=== PATIENT | female | born 1950 | race Caucasian/White ===

== ENCOUNTER → 2016-07-07 | Outpatient (REF) | payer MEDICARE, MEDICAID ==
[~2016-07-07] MED LIST: ASTEPRO NASAL SPRAY PO; CALCCHW12 PO; IBUP600T PO; INTERFERON SQ; KLON0.5T PO; METH40TA PO; MULTIVIT PO; PRIL20CA PO; RIBAVIRIN PO; RISE30TA PO; VITA-113 INJ; ZITH500T PO; [UNRECOGNIZED DRUG - OTHER] PO; [UNRECOGNIZED DRUG - OTHER] PO
[2016-07-07 11:52] LABS: MEAN CORPUSCULAR HEMOGLOBIN 32.8 pg (27.0-33.0); MEAN CORPUSCULAR HGB CONC 35.2 g/dl (32.0-36.5); MEAN CORPUSCULAR VOLUME 93.1 fl (80.0-96.0); RED CELL DISTRIBUTION WIDTH 13.5 % (11.5-14.5); WHITE BLOOD COUNT 3.4 K/mm3 (4.0-10.0)
[2016-07-07 12:08] LABS: FOLATE > 24.0 NG/ML; VITAMIN B12 LEVEL 533 PG/ML
[2016-07-07 12:31] LABS: ALBUMIN 3.3 GM/DL (3.2-5.2); ALBUMIN/GLOBULIN RATIO 0.83 (1.00-1.93); ALKALINE PHOSPHATASE 108 U/L (45-117); ALT/SGPT 19 U/L (12-78); ANION GAP 7 MEQ/L (8-16); AST/SGOT 27 U/L (15-37); BILIRUBIN,TOTAL 0.8 MG/DL (0.2-1.0); BLOOD UREA NITROGEN 15 MG/DL (7-18); CALCIUM LEVEL 8.8 MG/DL (8.8-10.2); CARBON DIOXIDE LEVEL 32 MEQ/L (21-32); CHLORIDE LEVEL 104 MEQ/L (98-107); CHOLESTEROL LEVEL 139 MG/DL (<200); CREATININE FOR GFR 0.72 MG/DL (0.55-1.02); GLOMERULAR FILTRATION RATE > 60.0 (>45); GLUCOSE, FASTING 79 MG/DL (80-110); POTASSIUM SERUM 3.7 MEQ/L (3.5-5.1); SODIUM LEVEL 143 MEQ/L (136-145); TOTAL PROTEIN 7.3 GM/DL (6.4-8.2); TRIGLYCERIDES LEVEL 89 MG/DL (<150)
== END ==
LOC: M SFHCPLAZ 09:52
PROVIDERS: ATTEND Nurse Practitioner Family
DX: Z13.220 Encounter for screening for lipoid disorders (principal); E53.8 Deficiency of other specified B group vitamins; E55.9 Vitamin D deficiency, unspecified; Z79.899 Other long term (current) drug therapy

== ENCOUNTER → 2016-08-06 | Outpatient (REF) | payer MEDICARE, MEDICAID ==
[2016-08-06 13:45] LABS: FOLATE 23.2 NG/ML
[2016-08-08 00:07] LABS: HEPATITIS C QUANTITATION HCV Not Detected IU/mL (.)
== END ==
LOC: M SFHCPLAZ 09:28
PROVIDERS: ATTEND Internal Medicine Infectious Disease
DX: B18.2 Chronic viral hepatitis C (principal)
CPT/HCPCS: 82105; 82607; 82746; 87522; 93005; G0463

== ENCOUNTER → 2016-08-11 | Outpatient (CLI) | payer MEDICARE, MEDICAID ==
--- NOTE | 2016-08-11 12:13 | REP ---
Clinical: Hemoptysis . Comparison: 05/09/2014 . Technique: PA and lateral. Findings: The mediastinum and cardiac silhouette are normal. The lung villafuerte are clear and without acute consolidation, effusion, or pneumothorax. The skeletal structures are intact and normal. Impression: 1. No acute cardiopulmonary process. Signed by Rakesh Nguyen MD 08/11/2016 08:35 A
--- NOTE | 2016-08-11 12:13 | REP ---
Clinical: Chronic hepatitis C. Comparison: 06/05/2015. Technique: The time gomez scale ultrasound examination using curved array transducer. Findings: The liver demonstrates a coarsened hepatic echotexture without focal hepatic lesion identified. The pancreas is incompletely evaluated but visualized portions appear normal. The gallbladder demonstrates multiple gallstones without wall thickening or pericholecystic fluid. No intrahepatic biliary ductal dilatation is appreciated and the common bile duct is upper limits of normal at 7.5 mm diameter. The right kidney is normal in reniform shape without hydronephrosis and measures 9.6 x 4.8 x 4.8 cm. No ascites. Impression: 1. Hepatocellular disease compatible with history of hepatitis. No focal hepatic lesions are identified. 2. Cholelithiasis without sonographic evidence for acute cholecystitis. Signed by Rakesh Nguyen MD 08/11/2016 08:36 A
== END ==
LOC: M RAD 08:00
PROVIDERS: ATTEND Internal Medicine Infectious Disease
DX: K76.89 Other specified diseases of liver (principal); K80.20 Calculus of gallbladder without cholecystitis without obstruction; B18.2 Chronic viral hepatitis C; R04.2 Hemoptysis
CPT/HCPCS: 71020; 76705; G0463

== ENCOUNTER → 2016-08-22 | Outpatient (REF) | payer MEDICARE, MEDICAID ==
[2016-08-22 16:25] LABS: BLOOD UREA NITROGEN 16 MG/DL (7-18); CREATININE FOR GFR 0.85 MG/DL (0.55-1.02); GLUCOSE, FASTING 100 MG/DL (80-110)
[2016-08-22 16:26] LABS: ANION GAP 6 MEQ/L (8-16); CALCIUM LEVEL 8.6 MG/DL (8.8-10.2); CARBON DIOXIDE LEVEL 29 MEQ/L (21-32); CHLORIDE LEVEL 106 MEQ/L (98-107); GLOMERULAR FILTRATION RATE > 60.0 (>45); POTASSIUM SERUM 3.8 MEQ/L (3.5-5.1); SODIUM LEVEL 141 MEQ/L (136-145)
== END ==
LOC: M SFHCPLAZ 12:28
PROVIDERS: ATTEND Nurse Practitioner Family
DX: I10 Essential (primary) hypertension (principal)
CPT/HCPCS: 36415; 80048; 93005; G0463

== ENCOUNTER → 2016-09-16 | Outpatient (REF) | payer MEDICARE, MEDICAID ==
[2016-09-16 13:32] LABS: ANION GAP 8 MEQ/L (8-16); BLOOD UREA NITROGEN 15 MG/DL (7-18); CALCIUM LEVEL 9.2 MG/DL (8.8-10.2); CARBON DIOXIDE LEVEL 32 MEQ/L (21-32); CHLORIDE LEVEL 98 MEQ/L (98-107); CREATININE FOR GFR 0.85 MG/DL (0.55-1.02); GLOMERULAR FILTRATION RATE > 60.0 (>45); GLUCOSE, FASTING 114 MG/DL (80-110); POTASSIUM SERUM 3.3 MEQ/L (3.5-5.1); SODIUM LEVEL 138 MEQ/L (136-145)
== END ==
LOC: M SFHCPLAZ 11:23
PROVIDERS: ATTEND Nurse Practitioner Family
DX: I10 Essential (primary) hypertension (principal)
CPT/HCPCS: 36415; 80048; G0463

== ENCOUNTER → 2016-09-23 | Outpatient (REF) | payer MEDICARE, MEDICAID ==
[2016-09-23 16:51] LABS: MEAN CORPUSCULAR HEMOGLOBIN 32.6 pg (27.0-33.0); MEAN CORPUSCULAR HGB CONC 35.6 g/dl (32.0-36.5); MEAN CORPUSCULAR VOLUME 91.5 fl (80.0-96.0); RED CELL DISTRIBUTION WIDTH 12.8 % (11.5-14.5); WHITE BLOOD COUNT 5.7 K/mm3 (4.0-10.0)
[2016-09-23 17:16] LABS: FOLATE > 24.0 NG/ML; VITAMIN B12 LEVEL 771 PG/ML
[2016-09-23 18:06] LABS: ALBUMIN 3.6 GM/DL (3.2-5.2); ALBUMIN/GLOBULIN RATIO 0.82 (1.00-1.93); ALKALINE PHOSPHATASE 134 U/L (45-117); ALT/SGPT 23 U/L (12-78); ANION GAP 6 MEQ/L (8-16); AST/SGOT 30 U/L (15-37); BILIRUBIN,TOTAL 0.6 MG/DL (0.2-1.0); BLOOD UREA NITROGEN 12 MG/DL (7-18); CARBON DIOXIDE LEVEL 33 MEQ/L (21-32); CHLORIDE LEVEL 99 MEQ/L (98-107); CREATININE FOR GFR 0.88 MG/DL (0.55-1.02); GLOMERULAR FILTRATION RATE > 60.0 (>45); GLUCOSE, FASTING 100 MG/DL (80-110); POTASSIUM SERUM 3.7 MEQ/L (3.5-5.1); SODIUM LEVEL 138 MEQ/L (136-145)
== END ==
LOC: M SFHCPLAZ 14:29
PROVIDERS: ATTEND Nurse Practitioner Family
DX: E53.8 Deficiency of other specified B group vitamins (principal); M54.9 Dorsalgia, unspecified; I10 Essential (primary) hypertension; E55.9 Vitamin D deficiency, unspecified

== ENCOUNTER → 2016-10-22 | Outpatient (CLI) | payer MEDICARE, MEDICAID ==
[2016-10-22 16:39] LABS: ANION GAP 8 MEQ/L (8-16); BLOOD UREA NITROGEN 15 MG/DL (7-18); CALCIUM LEVEL 8.9 MG/DL (8.8-10.2); CARBON DIOXIDE LEVEL 31 MEQ/L (21-32); CHLORIDE LEVEL 100 MEQ/L (98-107); CREATININE FOR GFR 0.77 MG/DL (0.55-1.02); GLOMERULAR FILTRATION RATE > 60.0 (>45); GLUCOSE, FASTING 81 MG/DL (80-110); POTASSIUM SERUM 3.6 MEQ/L (3.5-5.1); SODIUM LEVEL 139 MEQ/L (136-145)
== END ==
LOC: M LAB 15:51
PROVIDERS: ATTEND Nurse Practitioner Family
DX: I10 Essential (primary) hypertension (principal)

== ENCOUNTER → 2017-05-08 | Outpatient (REF) | payer MEDICARE, MEDICAID ==
[2017-05-08 16:05] LABS: HEMATOCRIT 39.5 % (36.0-47.0); HEMOGLOBIN 13.6 g/dl (12.0-16.0); MEAN CORPUSCULAR HEMOGLOBIN 31.5 pg (27.0-33.0); MEAN CORPUSCULAR HGB CONC 34.4 g/dl (32.0-36.5); MEAN CORPUSCULAR VOLUME 91.4 fl (80.0-96.0); RED BLOOD COUNT 4.32 10^6/uL (4.00-5.40); WHITE BLOOD COUNT 4.6 10^3/uL (4.0-10.0)
[2017-05-08 16:24] LABS: TOTAL 25(OH) VITAMIN D 33.4 NG/ML (30.0-100.0)
[2017-05-08 16:25] LABS: FOLATE 19.9 NG/ML; VITAMIN B12 LEVEL 738 PG/ML
[2017-05-08 16:34] LABS: ALBUMIN 3.4 GM/DL (3.2-5.2); ALBUMIN/GLOBULIN RATIO 0.85 (1.00-1.93); ALKALINE PHOSPHATASE 116 U/L (45-117); ALT/SGPT 20 U/L (12-78); ANION GAP 6 MEQ/L (8-16); AST/SGOT 31 U/L (7-37); BILIRUBIN,TOTAL 0.6 MG/DL (0.2-1.0); BLOOD UREA NITROGEN 13 MG/DL (7-18); CALCIUM LEVEL 8.7 MG/DL (8.8-10.2); CARBON DIOXIDE LEVEL 28 MEQ/L (21-32); CHLORIDE LEVEL 106 MEQ/L (98-107); CREATININE FOR GFR 0.73 MG/DL (0.55-1.30); GLOMERULAR FILTRATION RATE > 60.0 (>45); GLUCOSE, FASTING 75 MG/DL (70-100); POTASSIUM SERUM 4.1 MEQ/L (3.5-5.1); SODIUM LEVEL 140 MEQ/L (136-145); TOTAL PROTEIN 7.4 GM/DL (6.4-8.2)
[2017-05-08 17:09] LABS: PLATELET COUNT, AUTOMATED 76 10^3/uL (150-450); POS COUNT POS FLAG
[2017-05-08 17:10] LABS: IMMATURE PLATELET FRACTION % 6.8 % (0.0-9.6)
== END ==
LOC: M SFHCPLAZ 14:03
DX: E53.8 Deficiency of other specified B group vitamins (principal); I10 Essential (primary) hypertension; E55.9 Vitamin D deficiency, unspecified
CPT/HCPCS: 82746

== ENCOUNTER 2017-06-02 03:31 | Inpatient (IN) | payer MEDICARE, MEDICAID ==
[2017-06-02 05:07] LABS: BASO % 0.1 % (0.0-1.0); HEMATOCRIT 39.1 % (36.0-47.0); HEMOGLOBIN 13.4 g/dl (12.0-15.5); IMMATURE GRANULOCYTE % 0.4 % (0-3.0); LYMPH # 0.8 10^3/uL (1.5-4.5); LYMPH % 8.9 % (24.0-44.0); MEAN CORPUSCULAR HEMOGLOBIN 31.1 pg (27.0-33.0); MEAN CORPUSCULAR HGB CONC 34.3 g/dl (32.0-36.5); MEAN CORPUSCULAR VOLUME 90.7 fl (80.0-96.0); MONO # 0.9 10^3/uL (0.0-0.8); MONO % 9.5 % (0.0-5.0); NEUTROPHILS # 7.7 10^3/uL (1.8-7.7); NEUTROPHILS % 81.1 % (36.0-66.0); RED BLOOD COUNT 4.31 10^6/uL (4.00-5.40); RED CELL DISTRIBUTION WIDTH 12.8 % (11.5-14.5); WHITE BLOOD COUNT 9.5 10^3/uL (4.0-10.0)
[2017-06-02 05:35] LABS: PLATELET COUNT, AUTOMATED 70 10^3/uL (150-450); POS COUNT POS FLAG
[2017-06-02 05:36] LABS: IMMATURE PLATELET FRACTION % 5.4 % (0.0-9.6)
[2017-06-02] MEDS: NS 500 ML IV (05:44)
[2017-06-02 06:13] LABS: ALBUMIN/GLOBULIN RATIO 0.79 (1.00-1.93); ALKALINE PHOSPHATASE 102 U/L (45-117); ALT/SGPT 13 U/L (12-78); ANION GAP 5 MEQ/L (8-16); AST/SGOT 28 U/L (7-37); BILIRUBIN,DIRECT 0.3 MG/DL (0.0-0.2); BLOOD UREA NITROGEN 12 MG/DL (7-18); CALCIUM LEVEL 8.1 MG/DL (8.8-10.2); CARBON DIOXIDE LEVEL 26 MEQ/L (21-32); CHLORIDE LEVEL 105 MEQ/L (98-107); CREATININE FOR GFR 0.68 MG/DL (0.55-1.30); GLOMERULAR FILTRATION RATE > 60.0 (>45); GLUCOSE, FASTING 94 MG/DL (70-100); LIPASE 48 U/L (73-393); POTASSIUM SERUM 3.8 MEQ/L (3.5-5.1); SODIUM LEVEL 136 MEQ/L (136-145); TOTAL PROTEIN 6.8 GM/DL (6.4-8.2)
[2017-06-02] MEDS: NS 1,000 ML IV ×2 (06:31→09:06)
[2017-06-02] MEDS ORDERED: ISOVUE-370 76% 100ML VIAL (Q9967) As Ordered (06:34)
[2017-06-02] MEDS: PROMETHAZINE INJ 25 MG/ML VIAL (J2550) IV (07:41)
[2017-06-02] MEDS: MORPHINE 2 MG/ML 1ML SYRINGE (J2270) IV ×2 (07:41→08:38)
[2017-06-02] MEDS: MORPHINE 4 MG/ML 1ML VIAL/SYRINGE (J2270) IV ×2 (15:57→22:44)
[2017-06-02] MEDS: metroNIDAZOLE 500 MG in APPROPRIATE DILUENT 1 EA IV ×2 (17:13→23:14)
[2017-06-02] MEDS: VANCOMYCIN ORAL SOL 250MG/5ML ORAL SYRINGE PO ×2 (17:13→23:14)
[2017-06-02] MEDS: KCL 20MEQ IN 0.45NS 1000ML 1,000 ML IV (19:35)
[2017-06-02] MEDS: ONDANSETRON 4MG/2ML VIAL (J2405) IV (23:15)
[2017-06-03] MEDS: MORPHINE 4 MG/ML 1ML VIAL/SYRINGE (J2270) IV ×5 (01:51→20:16)
[2017-06-03] MEDS: KCL 20MEQ IN 0.45NS 1000ML 1,000 ML IV ×3 (01:51→17:34)
[2017-06-03] MEDS: VANCOMYCIN ORAL SOL 250MG/5ML ORAL SYRINGE PO ×3 (05:28→17:33)
[2017-06-03] MEDS: clonazePAM 0.5 MG TAB PO ×2 (05:28→20:14)
[2017-06-03 06:25] LABS: BASO % 0.2 % (0.0-1.0); HEMATOCRIT 33.3 % (36.0-47.0); HEMOGLOBIN 11.8 g/dl (12.0-15.5); IMMATURE GRANULOCYTE % 0.5 % (0-3.0); LYMPH # 0.6 10^3/uL (1.5-4.5); LYMPH % 10.5 % (24.0-44.0); MEAN CORPUSCULAR HEMOGLOBIN 31.5 pg (27.0-33.0); MEAN CORPUSCULAR HGB CONC 35.4 g/dl (32.0-36.5); MEAN CORPUSCULAR VOLUME 88.8 fl (80.0-96.0); MONO # 0.5 10^3/uL (0.0-0.8); MONO % 9.4 % (0.0-5.0); NEUTROPHILS # 4.5 10^3/uL (1.8-7.7); NEUTROPHILS % 79.4 % (36.0-66.0); RED BLOOD COUNT 3.75 10^6/uL (4.00-5.40); RED CELL DISTRIBUTION WIDTH 12.7 % (11.5-14.5); WHITE BLOOD COUNT 5.6 10^3/uL (4.0-10.0)
[2017-06-03 06:28] LABS: IMMATURE PLATELET FRACTION % 3.3 % (0.0-9.6); PLATELET COUNT, AUTOMATED 56 10^3/uL (150-450); PLATELET F 55
[2017-06-03 06:42] LABS: ALBUMIN 2.5 GM/DL (3.2-5.2); ALBUMIN/GLOBULIN RATIO 0.66 (1.00-1.93); ALKALINE PHOSPHATASE 78 U/L (45-117); ALT/SGPT 15 U/L (12-78); ANION GAP 5 MEQ/L (8-16); AST/SGOT 26 U/L (7-37); BILIRUBIN,TOTAL 0.6 MG/DL (0.2-1.0); BLOOD UREA NITROGEN 7 MG/DL (7-18); CALCIUM LEVEL 7.9 MG/DL (8.8-10.2); CARBON DIOXIDE LEVEL 26 MEQ/L (21-32); CHLORIDE LEVEL 109 MEQ/L (98-107); CREATININE FOR GFR 0.53 MG/DL (0.55-1.30); GLOMERULAR FILTRATION RATE > 60.0 (>45); GLUCOSE, FASTING 110 MG/DL (70-100); POTASSIUM SERUM 3.7 MEQ/L (3.5-5.1); SODIUM LEVEL 140 MEQ/L (136-145); TOTAL PROTEIN 6.3 GM/DL (6.4-8.2)
[2017-06-03] MEDS: metroNIDAZOLE 500 MG in APPROPRIATE DILUENT 1 EA IV (08:30)
[2017-06-03 10:48] LABS: MAGNESIUM LEVEL 1.8 MG/DL (1.8-2.4)
[2017-06-03] MEDS: NS 500 ML IV (10:51)
[2017-06-03] MEDS: ONDANSETRON 4MG/2ML VIAL (J2405) IV (16:49)
[2017-06-04] MEDS: VANCOMYCIN ORAL SOL 250MG/5ML ORAL SYRINGE PO ×5 (00:10→23:37)
[2017-06-04] MEDS: MORPHINE 4 MG/ML 1ML VIAL/SYRINGE (J2270) IV ×4 (00:36→23:39)
[2017-06-04] MEDS: ONDANSETRON 4MG/2ML VIAL (J2405) IV (01:14)
[2017-06-04] MEDS: KCL 20MEQ IN 0.45NS 1000ML 1,000 ML IV ×3 (03:29→20:43)
[2017-06-04 06:46] LABS: HEMATOCRIT 38.2 % (36.0-47.0); HEMOGLOBIN 13.4 g/dl (12.0-15.5); MEAN CORPUSCULAR HGB CONC 35.1 g/dl (32.0-36.5); MEAN CORPUSCULAR VOLUME 88.4 fl (80.0-96.0); PLATELET COUNT, AUTOMATED 85 10^3/uL (150-450); RED BLOOD COUNT 4.32 10^6/uL (4.00-5.40); RED CELL DISTRIBUTION WIDTH 12.9 % (11.5-14.5); WHITE BLOOD COUNT 6.2 10^3/uL (4.0-10.0)
[2017-06-04 06:47] LABS: IMMATURE PLATELET FRACTION % 6.2 % (0.0-9.6)
[2017-06-04 07:14] LABS: ALBUMIN 2.7 GM/DL (3.2-5.2); ALBUMIN/GLOBULIN RATIO 0.66 (1.00-1.93); ALKALINE PHOSPHATASE 81 U/L (45-117); ALT/SGPT 15 U/L (12-78); ANION GAP 5 MEQ/L (8-16); AST/SGOT 27 U/L (7-37); BILIRUBIN,TOTAL 0.5 MG/DL (0.2-1.0); BLOOD UREA NITROGEN 5 MG/DL (7-18); CALCIUM LEVEL 8.2 MG/DL (8.8-10.2); CARBON DIOXIDE LEVEL 27 MEQ/L (21-32); CHLORIDE LEVEL 108 MEQ/L (98-107); CREATININE FOR GFR 0.55 MG/DL (0.55-1.30); FREE T4 1.35 NG/DL (0.76-1.46); GLOMERULAR FILTRATION RATE > 60.0 (>45); GLUCOSE, FASTING 82 MG/DL (70-100); MAGNESIUM LEVEL 1.9 MG/DL (1.8-2.4); POTASSIUM SERUM 3.4 MEQ/L (3.5-5.1); SODIUM LEVEL 140 MEQ/L (136-145); TOTAL PROTEIN 6.8 GM/DL (6.4-8.2)
[2017-06-04] MEDS: METHADONE 10 MG TAB (S0109) PO (09:00)
[2017-06-04] MEDS ORDERED: ENOXAPARIN 40 MG/0.4 ML SYRINGE (J1650) SC (09:00)
[2017-06-04] MEDS: KCL 10MEQ/100ML SWI (KRUN) 10 MEQ in APPROPRIATE DILUENT 1 EA IV (09:20)
[2017-06-04] MEDS: POTASSIUM CHLORIDE 10 MEQ SR TABLET PO ×2 (10:32→14:27)
[2017-06-04] MEDS: clonazePAM 0.5 MG TAB PO (22:16)
[2017-06-05] MEDS: VANCOMYCIN ORAL SOL 250MG/5ML ORAL SYRINGE PO ×4 (05:52→23:54)
[2017-06-05 06:36] LABS: HEMATOCRIT 35.9 % (36.0-47.0); HEMOGLOBIN 12.5 g/dl (12.0-15.5); MEAN CORPUSCULAR HEMOGLOBIN 31.2 pg (27.0-33.0); MEAN CORPUSCULAR HGB CONC 34.8 g/dl (32.0-36.5); MEAN CORPUSCULAR VOLUME 89.5 fl (80.0-96.0); RED BLOOD COUNT 4.01 10^6/uL (4.00-5.40)
[2017-06-05 06:39] LABS: PLATELET COUNT, AUTOMATED 82 10^3/uL (150-450)
[2017-06-05] MEDS: KCL 20MEQ IN 0.45NS 1000ML 1,000 ML IV ×2 (06:44→16:49)
[2017-06-05 06:59] LABS: ALBUMIN 2.3 GM/DL (3.2-5.2); ALBUMIN/GLOBULIN RATIO 0.61 (1.00-1.93); ALKALINE PHOSPHATASE 71 U/L (45-117); ALT/SGPT 15 U/L (12-78); ANION GAP 3 MEQ/L (8-16); AST/SGOT 28 U/L (7-37); BILIRUBIN,TOTAL 0.5 MG/DL (0.2-1.0); BLOOD UREA NITROGEN 4 MG/DL (7-18); CALCIUM LEVEL 8.4 MG/DL (8.8-10.2); CARBON DIOXIDE LEVEL 29 MEQ/L (21-32); CHLORIDE LEVEL 107 MEQ/L (98-107); CREATININE FOR GFR 0.55 MG/DL (0.55-1.30); GLOMERULAR FILTRATION RATE > 60.0 (>45); GLUCOSE, FASTING 69 MG/DL (70-100); MAGNESIUM LEVEL 1.8 MG/DL (1.8-2.4); POTASSIUM SERUM 4.1 MEQ/L (3.5-5.1); SODIUM LEVEL 139 MEQ/L (136-145); TOTAL PROTEIN 6.1 GM/DL (6.4-8.2)
[2017-06-05] MEDS: METHADONE 10 MG TAB (S0109) PO (08:46)
[2017-06-05] MEDS: MIRALAX *UNIT DOSE* 17GM PACKET PO (09:00)
[2017-06-05 15:34] LABS: TROPONIN I < 0.02 NG/ML (< 0.10)
[2017-06-05] MEDS ORDERED: SENOKOT S TAB PO (21:00)
[2017-06-06] MEDS: clonazePAM 0.5 MG TAB PO ×2 (00:31→23:02)
[2017-06-06] MEDS: VANCOMYCIN ORAL SOL 250MG/5ML ORAL SYRINGE PO ×4 (05:45→23:01)
[2017-06-06] MEDS: KCL 20MEQ IN 0.45NS 1000ML 1,000 ML IV ×3 (05:45→22:14)
[2017-06-06 06:02] LABS: HEMATOCRIT 37.6 % (36.0-47.0); HEMOGLOBIN 13.2 g/dl (12.0-15.5); MEAN CORPUSCULAR HEMOGLOBIN 31.1 pg (27.0-33.0); MEAN CORPUSCULAR HGB CONC 35.1 g/dl (32.0-36.5); MEAN CORPUSCULAR VOLUME 88.7 fl (80.0-96.0); PLATELET COUNT, AUTOMATED 103 10^3/uL (150-450); RED BLOOD COUNT 4.24 10^6/uL (4.00-5.40); RED CELL DISTRIBUTION WIDTH 12.8 % (11.5-14.5); WHITE BLOOD COUNT 4.5 10^3/uL (4.0-10.0)
[2017-06-06 06:18] LABS: ALBUMIN 2.7 GM/DL (3.2-5.2); ALBUMIN/GLOBULIN RATIO 0.64 (1.00-1.93); ALKALINE PHOSPHATASE 79 U/L (45-117); ALT/SGPT 19 U/L (12-78); ANION GAP 5 MEQ/L (8-16); AST/SGOT 29 U/L (7-37); BILIRUBIN,TOTAL 0.5 MG/DL (0.2-1.0); BLOOD UREA NITROGEN 4 MG/DL (7-18); CALCIUM LEVEL 8.4 MG/DL (8.8-10.2); CARBON DIOXIDE LEVEL 30 MEQ/L (21-32); CHLORIDE LEVEL 105 MEQ/L (98-107); CREATININE FOR GFR 0.53 MG/DL (0.55-1.30); GLOMERULAR FILTRATION RATE > 60.0 (>45); GLUCOSE, FASTING 72 MG/DL (70-100); POTASSIUM SERUM 3.8 MEQ/L (3.5-5.1); SODIUM LEVEL 140 MEQ/L (136-145); TOTAL PROTEIN 6.9 GM/DL (6.4-8.2)
[2017-06-06] MEDS: METHADONE 10 MG TAB (S0109) PO (08:40)
[2017-06-07] MEDS: VANCOMYCIN ORAL SOL 250MG/5ML ORAL SYRINGE PO ×3 (05:23→18:03)
[2017-06-07 06:06] LABS: HEMATOCRIT 35.3 % (36.0-47.0); HEMOGLOBIN 12.4 g/dl (12.0-15.5); MEAN CORPUSCULAR HEMOGLOBIN 30.8 pg (27.0-33.0); MEAN CORPUSCULAR HGB CONC 35.1 g/dl (32.0-36.5); MEAN CORPUSCULAR VOLUME 87.6 fl (80.0-96.0); PLATELET COUNT, AUTOMATED 104 10^3/uL (150-450); RED BLOOD COUNT 4.03 10^6/uL (4.00-5.40); RED CELL DISTRIBUTION WIDTH 12.6 % (11.5-14.5)
[2017-06-07 06:28] LABS: ALBUMIN 2.6 GM/DL (3.2-5.2); ALBUMIN/GLOBULIN RATIO 0.65 (1.00-1.93); ALKALINE PHOSPHATASE 77 U/L (45-117); ALT/SGPT 17 U/L (12-78); ANION GAP 5 MEQ/L (8-16); AST/SGOT 25 U/L (7-37); BILIRUBIN,TOTAL 0.3 MG/DL (0.2-1.0); BLOOD UREA NITROGEN 5 MG/DL (7-18); CALCIUM LEVEL 8.2 MG/DL (8.8-10.2); CARBON DIOXIDE LEVEL 29 MEQ/L (21-32); CHLORIDE LEVEL 106 MEQ/L (98-107); CREATININE FOR GFR 0.55 MG/DL (0.55-1.30); GLOMERULAR FILTRATION RATE > 60.0 (>45); GLUCOSE, FASTING 80 MG/DL (70-100); POTASSIUM SERUM 3.9 MEQ/L (3.5-5.1); SODIUM LEVEL 140 MEQ/L (136-145); TOTAL PROTEIN 6.6 GM/DL (6.4-8.2)
[2017-06-07] MEDS: KCL 20MEQ IN 0.45NS 1000ML 1,000 ML IV ×2 (07:57→18:03)
[2017-06-07] MEDS: METHADONE 5 MG TAB (S0109) PO (07:58)
[2017-06-08] MEDS: VANCOMYCIN ORAL SOL 250MG/5ML ORAL SYRINGE PO ×2 (00:18→05:38)
[2017-06-08] MEDS: KCL 20MEQ IN 0.45NS 1000ML 1,000 ML IV (04:09)
[2017-06-08] MEDS: METHADONE 5 MG TAB (S0109) PO (09:06)
== END 2017-06-08 09:47 | disposition home or self-care (01) | DRG 372 ==
LOC: M ED 03:31 → M ED INP 15:21 → M MSPAV 16:15
DX: A04.72 Enterocolitis due to Clostridium difficile, not specified as recurrent (principal); E87.2 Acidosis; R18.8 Other ascites; K74.60 Unspecified cirrhosis of liver; F11.21 Opioid dependence, in remission; E87.6 Hypokalemia; I49.3 Ventricular premature depolarization; D69.6 Thrombocytopenia, unspecified; B18.2 Chronic viral hepatitis C; Z79.899 Other long term (current) drug therapy; K21.9 Gastro-esophageal reflux disease without esophagitis; M81.0 Age-related osteoporosis without current pathological fracture; M19.90 Unspecified osteoarthritis, unspecified site; F41.1 Generalized anxiety disorder; R71.8 Other abnormality of red blood cells; J44.9 Chronic obstructive pulmonary disease, unspecified; E55.9 Vitamin D deficiency, unspecified; F17.200 Nicotine dependence, unspecified, uncomplicated

== ENCOUNTER → 2017-06-24 | Outpatient (REF) | payer MEDICARE, MEDICAID ==
[2017-06-24 13:44] LABS: INR 1.12; PROTHROMBIN TIME 14.6 SECONDS (12.4-14.5)
[2017-06-24 14:02] LABS: AMMONIA 43 uMOL/L (<32)
[2017-06-24 14:30] LABS: ANION GAP 6 MEQ/L (8-16); BLOOD UREA NITROGEN 7 MG/DL (7-18); CALCIUM LEVEL 8.7 MG/DL (8.8-10.2); CARBON DIOXIDE LEVEL 30 MEQ/L (21-32); CHLORIDE LEVEL 106 MEQ/L (98-107); CREATININE FOR GFR 0.69 MG/DL (0.55-1.30); FREE T4 0.99 NG/DL (0.76-1.46); GLOMERULAR FILTRATION RATE > 60.0 (>45); GLUCOSE, FASTING 79 MG/DL (70-100); POTASSIUM SERUM 3.8 MEQ/L (3.5-5.1); SODIUM LEVEL 142 MEQ/L (136-145)
[2017-06-26 09:20] LABS: ALPHA FETOPROTEIN TUMOR QUANT 5.4 NG/ML (<8.1)
== END ==
LOC: M SFHCPLAZ 10:56
DX: K74.60 Unspecified cirrhosis of liver (principal); E03.9 Hypothyroidism, unspecified
CPT/HCPCS: 82140

== ENCOUNTER → 2017-12-18 | Outpatient (CLI) | payer MEDICARE, MEDICAID | LOC: M RAD 07:53 | DX: K74.60 Unspecified cirrhosis of liver (principal); K80.20 Calculus of gallbladder without cholecystitis without obstruction; K83.8 Other specified diseases of biliary tract | CPT/HCPCS: 76705 ==

== ENCOUNTER → 2018-05-14 | Outpatient (REF) | payer MEDICARE, MEDICAID ==
[~2018-05-14] MED LIST changes: +CALC-195 PO; +CEFD1CAP8; +CHLO125TA; +CLON0.5T8 PO; +DOXY100C37; +ESSETAB4 PO; +FIRS50SO PO; +HALO15OI; +LEVO500T3; +METH10CO PO; +MICR10CA PO; +VENTAER INH
[2018-05-23 00:08] LABS: HSV-1 DNA Positive (Negative); HSV-2 DNA Negative (Negative); VARICELLA ZOSTER VIRUS PCR Negative (Negative)
== END ==
LOC: M SFHCPLAZ 17:11
PROVIDERS: ATTEND Dermatology
DX: R21 Rash and other nonspecific skin eruption (principal)

== ENCOUNTER → 2018-05-28 | Outpatient (REF) | payer MEDICARE, MEDICAID ==
[2018-05-28 16:37] LABS: ALBUMIN 3.3 GM/DL (3.2-5.2); ALT/SGPT 17 U/L (12-78); BILIRUBIN,TOTAL 0.6 MG/DL (0.2-1.0); BLOOD UREA NITROGEN 11 MG/DL (7-18); CALCIUM LEVEL 8.5 MG/DL (8.8-10.2); CARBON DIOXIDE LEVEL 29 MEQ/L (21-32); CHLORIDE LEVEL 107 MEQ/L (98-107); CREATININE FOR GFR 0.79 MG/DL (0.55-1.30); FREE T4 0.97 NG/DL (0.76-1.46); GLOMERULAR FILTRATION RATE > 60.0 (>45); GLUCOSE, FASTING 89 MG/DL (70-100); INR 1.15; POTASSIUM SERUM 4.1 MEQ/L (3.5-5.1); PROTHROMBIN TIME 14.9 SECONDS (12.1-14.4); SODIUM LEVEL 142 MEQ/L (136-145); TOTAL PROTEIN 7.2 GM/DL (6.4-8.2)
[2018-05-28 16:38] LABS: TOTAL 25(OH) VITAMIN D 18.8 NG/ML (30.0-100.0)
== END ==
LOC: M SFHCPLAZ 15:17
PROVIDERS: ATTEND Nurse Practitioner Family
DX: K74.60 Unspecified cirrhosis of liver (principal); I10 Essential (primary) hypertension; E03.9 Hypothyroidism, unspecified; E55.9 Vitamin D deficiency, unspecified
CPT/HCPCS: 80053; 82105; 82140; 82306; 84439; 84443; 85610; 90832; G0463

== ENCOUNTER → 2018-06-21 | Outpatient (CLI) | payer MEDICARE, MEDICAID ==
--- NOTE | 2018-06-21 09:38 | REP ---
RIGHT UPPER QUADRANT ULTRASOUND: Real-time sonographic evaluation of the right upper quadrant was performed. Mobile gallstones are seen in the gallbladder without gallbladder wall thickening. Common bile duct is dilated at 9 mm. Echotexture of the liver is heterogenous and coarsened suggesting cirrhosis. No gross liver or pancreatic mass is seen. Pancreas is not optimally seen due to overlying bowel gas. Right kidney demonstrates no hydronephrosis with normal size 9.5 cm in length. There is no ascites. IMPRESSION: Mobile gallstones in the gallbladder. There is mild dilatation of the common bile duct 9 mm. On prior study of 12/19/2017 the common bile duct was dilated up to 13 mm, therefore this has decreased. Diffuse heterogenous echotexture of the liver suggesting fibrofatty infiltration/cirrhosis. Electronically Signed by Андрей Samuel MD 06/21/2018 05:26 P
== END ==
LOC: M RAD 07:55
PROVIDERS: ATTEND Nurse Practitioner Family
DX: K74.60 Unspecified cirrhosis of liver (principal); K80.00 Calculus of gallbladder with acute cholecystitis without obstruction

== ENCOUNTER → 2018-08-06 | Outpatient (REF) | payer MEDICARE, MEDICAID ==
[2018-08-06 17:42] LABS: BASO % 0.2 % (0.0-1.0); EOS # 0.1 10^3/uL (0.0-0.50); EOS % 1.9 % (0.0-3.0); HEMATOCRIT 40.2 % (36.0-47.0); HEMOGLOBIN 13.7 g/dl (12.0-15.5); LYMPH # 1.5 10^3/uL (1.5-4.5); LYMPH % 32.6 % (24.0-44.0); MEAN CORPUSCULAR HGB CONC 34.1 g/dl (32.0-36.5); MONO # 0.5 10^3/uL (0.0-0.8); MONO % 10.9 % (0.0-5.0); NEUTROPHILS # 2.5 10^3/uL (1.8-7.7); NEUTROPHILS % 54.2 % (36.0-66.0); PLATELET COUNT, AUTOMATED 102 10^3/uL (150-450); RED BLOOD COUNT 4.42 10^6/uL (4.00-5.40); WHITE BLOOD COUNT 4.7 10^3/uL (4.0-10.0)
[2018-08-06 17:44] LABS: ALBUMIN 3.2 GM/DL (3.2-5.2); ALT/SGPT 22 U/L (12-78); BILIRUBIN,TOTAL 0.5 MG/DL (0.2-1.0); BLOOD UREA NITROGEN 12 MG/DL (7-18); CALCIUM LEVEL 8.8 MG/DL (8.8-10.2); CARBON DIOXIDE LEVEL 29 MEQ/L (21-32); CHLORIDE LEVEL 104 MEQ/L (98-107); CREATININE FOR GFR 0.76 MG/DL (0.55-1.30); GLOMERULAR FILTRATION RATE > 60.0 (>45); GLUCOSE, FASTING 78 MG/DL (70-100); POTASSIUM SERUM 3.5 MEQ/L (3.5-5.1); SODIUM LEVEL 141 MEQ/L (136-145); TOTAL PROTEIN 7.5 GM/DL (6.4-8.2)
[2018-08-06 18:05] LABS: HEMOGLOBIN A1c 5.1 %
== END ==
LOC: M SFHCPLAZ 15:13
PROVIDERS: ATTEND Family Medicine
DX: F11.21 Opioid dependence, in remission (principal); Z13.1 Encounter for screening for diabetes mellitus
CPT/HCPCS: 36415; 80053; 83036; 85025; 93005; G0463

== ENCOUNTER → 2018-11-09 | Outpatient (REF) | payer MEDICARE, MEDICAID ==
[~2018-11-09] MED LIST changes: +CLON0.5T2 PO; -CLON0.5T8 PO
[2018-11-09 16:24] LABS: BASO % 0.5 % (0.0-1.0); EOS # 0.2 10^3/uL (0.0-0.5); EOS % 3.7 % (0.0-3.0); HEMATOCRIT 35.6 % (36.0-47.0); HEMOGLOBIN 12.5 g/dl (12.0-15.5); LYMPH # 0.8 10^3/uL (1.5-5.0); LYMPH % 20.7 % (24.0-44.0); MEAN CORPUSCULAR HEMOGLOBIN 31.6 pg (27.0-33.0); MEAN CORPUSCULAR HGB CONC 35.1 g/dl (32.0-36.5); MEAN CORPUSCULAR VOLUME 90.1 fl (80.0-96.0); MONO # 0.5 10^3/uL (0.0-0.8); MONO % 11.7 % (0.0-5.0); NEUTROPHILS # 2.5 10^3/uL (1.5-8.5); NEUTROPHILS % 63.2 % (36.0-66.0); PLATELET COUNT, AUTOMATED 120 10^3/uL (150-450); RED BLOOD COUNT 3.95 10^6/uL (4.00-5.40)
[2018-11-09 16:39] LABS: ALBUMIN 2.8 GM/DL (3.2-5.2); BILIRUBIN,DIRECT 0.3 MG/DL (0.0-0.2); BILIRUBIN,TOTAL 0.8 MG/DL (0.2-1.0); TOTAL PROTEIN 7.2 GM/DL (6.4-8.2)
[2018-11-09 16:43] LABS: TOTAL 25(OH) VITAMIN D 26.9 NG/ML (30.0-100.0)
[2018-11-09 16:44] LABS: FOLATE 17.9 NG/ML
== END ==
LOC: M SFHCPLAZ 15:13
PROVIDERS: ATTEND Family Medicine
DX: E53.8 Deficiency of other specified B group vitamins (principal); E55.9 Vitamin D deficiency, unspecified; K74.60 Unspecified cirrhosis of liver; J06.9 Acute upper respiratory infection, unspecified

== ENCOUNTER → 2018-11-17 | Outpatient (CLI) | payer MEDICARE, MEDICAID ==
[~2018-11-17] MED LIST changes: -CLON0.5T2 PO; +CLON0.5T8 PO
--- NOTE | 2018-11-17 16:12 | REP ---
HISTORY: Upper respiratory tract infection with cough. COMPARISON: 08/11/2016, the latest prior. There is a new wedge-shaped patchy opacity in the right upper lobe. Fibrotic changes are again seen throughout the lung villafuerte, status quo. The pleural angles are again seen to be sharp. The heart is not enlarged. There is no change in the osseous structures. IMPRESSION: Acute right upper lobe pneumonia. A stat report was generated at the time of this dictation and a stat report was placed in the patient's power jacket at this time. The power jacket report was faxed to the front office supervisor so as it could be forwarded to the patient's healthcare provider, Bethany Gardner MD Electronically Signed by Angel Mcfarland DO 11/17/2018 05:05 P
== END ==
LOC: M RAD 14:13
PROVIDERS: ATTEND Family Medicine
DX: J18.9 Pneumonia, unspecified organism (principal)

== ENCOUNTER → 2019-03-11 | Outpatient (CLI) | payer MEDICARE, MEDICAID ==
[~2019-03-11] MED LIST changes: +CLON0.5T2 PO; -CLON0.5T8 PO
--- NOTE | 2019-03-11 16:25 | REPMRS ---
Patient History The patient states she has not had a clinical breast exam in over a year. No known family history of cancer. Benign radio exam breast specimen of the left breast, March 28, 2014. Benign stereotatic loc for ea lesion of the left breast, March 28, 2014. Digital Woman Screen Mammo: March 11, 2019 - Exam #: [id number] Bilateral CC and MLO view(s) were taken. Technologists: Marisol Abad RT; Claudia Braga, Technologist Prior study comparison: January 30, 2014, digital woman screen mammo performed at [facility]. June 22, 2008, bilateral bilat screen digital mammo performed at [facility]. December 16, 2006, bilateral screening mammogram performed at [facility]. FINDINGS: There are scattered fibroglandular densities. There is a needle biopsy marker clip in the upper R per quadrant on the left. There is a moderate amount of residual fibroglandular tissue which is fairly symmetric. There is no interval development of dominant mass, architectural distortion, or grouped microcalcification typical of malignancy. There has been no change in the appearance of the mammogram from the prior studies. 3-D tomosynthesis shows no additional findings. Assessment: BI-RADS/ACR category 2 mammogram. Benign Findings. Recommendation Routine screening mammogram of both breasts in 1 year (for women over age 40). This patient's Lifetime Breast Cancer RIsk is estimated at 4.2 %. This mammogram was interpreted with the aid of an FDA-approved computer-aided dectection system. Electronically Signed By: Oneal Pride MD 03/11/19 [id number]
== END ==
LOC: M WHC 14:05
PROVIDERS: ATTEND Family Medicine
DX: Z12.31 Encounter for screening mammogram for malignant neoplasm of breast (principal); M81.0 Age-related osteoporosis without current pathological fracture; E55.9 Vitamin D deficiency, unspecified; K74.60 Unspecified cirrhosis of liver

== ENCOUNTER → 2019-07-20 | Outpatient (REF) | payer MEDICARE, MEDICAID ==
[2019-07-20 15:36] LABS: HEMATOCRIT 38.9 % (36.0-47.0); HEMOGLOBIN 13.3 g/dl (12.0-15.5); MEAN CORPUSCULAR HEMOGLOBIN 32.2 pg (27.0-33.0); MEAN CORPUSCULAR HGB CONC 34.2 g/dl (32.0-36.5); MEAN CORPUSCULAR VOLUME 94.2 fl (80.0-96.0); RED BLOOD COUNT 4.13 10^6/uL (4.00-5.40); WHITE BLOOD COUNT 3.7 10^3/uL (4.0-10.0)
[2019-07-20 15:57] LABS: PLATELET COUNT, AUTOMATED 86 10^3/uL (150-450)
[2019-07-20 16:14] LABS: ALBUMIN 2.9 GM/DL (3.2-5.2); ALT/SGPT 20 U/L (12-78); BILIRUBIN,TOTAL 0.7 MG/DL (0.2-1.0); BLOOD UREA NITROGEN 10 MG/DL (7-18); CALCIUM LEVEL 8.2 MG/DL (8.8-10.2); CARBON DIOXIDE LEVEL 32 MEQ/L (21-32); CHLORIDE LEVEL 107 MEQ/L (98-107); CHOLESTEROL LEVEL 119 MG/DL (<200); CHOLESTEROL RISK RATIO 2.479 (<5); CREATININE FOR GFR 0.69 MG/DL (0.55-1.30); FREE T4 0.98 NG/DL (0.76-1.46); GLOMERULAR FILTRATION RATE > 60.0 (>45); GLUCOSE, FASTING 77 MG/DL (70-100); HDL CHOLESTEROL 48 MG/DL (>40); LDL CHOLESTEROL 54 MG/DL (<100); NON-HDL-C 71 MG/DL; NT-PRO BNP 399 PG/ML (<125); POTASSIUM SERUM 4.4 MEQ/L (3.5-5.1); SODIUM LEVEL 143 MEQ/L (136-145); TOTAL 25(OH) VITAMIN D 36.4 NG/ML (30.0-100.0); TOTAL PROTEIN 6.6 GM/DL (6.4-8.2); TRIGLYCERIDES LEVEL 83 MG/DL (<150)
[2019-07-25 16:08] LABS: AFP TUMOR TOTAL 4.4 ng/mL (0.0-8.0)
== END ==
LOC: M PLALAB 12:05
PROVIDERS: ATTEND Family Medicine
DX: R60.0 Localized edema (principal); D69.6 Thrombocytopenia, unspecified; I10 Essential (primary) hypertension; K74.60 Unspecified cirrhosis of liver; E03.9 Hypothyroidism, unspecified; Z13.220 Encounter for screening for lipoid disorders; E55.9 Vitamin D deficiency, unspecified

== ENCOUNTER → 2019-07-21 | Outpatient (CLI) | payer MEDICARE, MEDICAID ==
--- NOTE | 2019-07-22 13:01 | ECHO ---
OUTPATIENT ECHOCARDIOGRAPHIC REPORT DATE OF PROCEDURE: 07/21/2019 DATE OF : 1950 AGE: 69 GENDER: Female HEIGHT: 66 inches WEIGHT: 185 pounds BODY SURFACE AREA: 1.93 m2 OUTPATIENT: REFERRING PHYSICIAN: Dr. Bethany Gardner INDICATION: Edema. MEASUREMENTS: 2-D Measurements: RV: 3.8 cm LV: 4.8 cm Septum: 1.0 cm Posterior wall: 1.0 cm Aortic root: 3.4 cm LA: 3.9 cm LVEF: 65% Doppler Measurements: AV: 1.35 m/sec LVOT: 0.84 m/sec LVOT diameter: 1.9 cm MV - E: 76, A: 64, EA ratio: 1.2 Early mitral deceleration time: 209 ms E prime medial: 7, A prime medial: 12, E prime lateral: 12.7 Average E/E prime ratio: 7.7 PV: 1.0 m/sec Pulmonary artery acceleration time: 140 ms RVSP: 32 mmHg IVC: 1.8 cm COMMENTS: Normal sinus rhythm without intraventricular conduction disturbance. M-mode and two-dimensional echocardiography was performed with pulsed, continuous wave, color flow and tissue Doppler studies. Normal left ventricular size, wall thickness and wall motion. Normal left atrial size and Doppler assessment of LV diastolic function and estimated mean left atrial pressure. Normal right heart chamber sizes and motion with Doppler sign of borderline to mild pulmonary hypertension. Normal IVC size and collapse against an elevated central venous pressure. Moderate aortic valvular sclerosis without stenosis and only very mild insufficiency. Normal aortic dimensions. Mild degenerative changes of the mitral valvular apparatus with no more than very mild insufficiency. Normal appearing tricuspid valve with mild insufficiency. No apparent intracardiac mass or pericardial effusion.
== END ==
LOC: M CARPUL 08:48
PROVIDERS: ATTEND Family Medicine
DX: R60.0 Localized edema (principal)

== ENCOUNTER → 2019-12-23 | Outpatient (CLI) | payer MEDICARE, MEDICAID ==
--- NOTE | 2019-12-23 16:32 | REPPI ---
INDICATION: R04.2 HEMOPTYSIS. COMPARISON: Comparison chest x-ray November 17, 2018. TECHNIQUE: Two views.. FINDINGS: Lungs are hyperinflated but free of infiltrate. Pleural angles are sharp. The previously noted right upper lobe pneumonia has resolved. There are degenerative changes in the thoracic spine and aorta. The heart is borderline. Cardiothoracic ratio measures 46.8%. Pulmonary vasculature is not increased. No other bony abnormality is seen. IMPRESSION: Hyperinflation. Borderline heart size. Degenerative disc changes in the thoracic spine. Otherwise no acute disease.. <Electronically signed by Oneal Pride > 12/23/19 [id number]
== END ==
LOC: M PLAIMG 12:43
PROVIDERS: ATTEND Family Medicine
DX: M51.34 Other intervertebral disc degeneration, thoracic region (principal); R04.2 Hemoptysis; M81.0 Age-related osteoporosis without current pathological fracture; D69.6 Thrombocytopenia, unspecified; K74.60 Unspecified cirrhosis of liver

== ENCOUNTER → 2019-12-23 | Outpatient (REF) | payer MEDICARE, MEDICAID ==
[2019-12-23 15:23] LABS: HEMOGLOBIN 12.9 g/dl (12.0-15.5); MEAN CORPUSCULAR HEMOGLOBIN 31.2 pg (27.0-33.0); MEAN CORPUSCULAR HGB CONC 33.1 g/dl (32.0-36.5); MEAN CORPUSCULAR VOLUME 94.2 fl (80.0-96.0); RED BLOOD COUNT 4.14 10^6/uL (4.00-5.40); WHITE BLOOD COUNT 4.3 10^3/uL (4.0-10.0)
[2019-12-23 15:27] LABS: ALBUMIN 3.2 GM/DL (3.2-5.2); ALT/SGPT 23 U/L (12-78); BLOOD UREA NITROGEN 10 MG/DL (7-18); CALCIUM LEVEL 8.5 MG/DL (8.8-10.2); CARBON DIOXIDE LEVEL 31 MEQ/L (21-32); CHLORIDE LEVEL 105 MEQ/L (98-107); CREATININE FOR GFR 0.76 MG/DL (0.55-1.30); GLOMERULAR FILTRATION RATE > 60.0 (>45); GLUCOSE, FASTING 125 MG/DL (70-100); PHOSPHORUS LEVEL 3.5 MG/DL (2.5-4.9); POTASSIUM SERUM 3.8 MEQ/L (3.5-5.1); SODIUM LEVEL 141 MEQ/L (136-145); TOTAL PROTEIN 6.9 GM/DL (6.4-8.2)
[2019-12-23 15:28] LABS: PLATELET COUNT, AUTOMATED 89 10^3/uL (150-450)
[2019-12-23 15:35] LABS: TOTAL 25(OH) VITAMIN D 38.2 NG/ML (30.0-100.0)
== END ==
LOC: M SFHCPLAZ 12:41
PROVIDERS: ATTEND Family Medicine
DX: M81.0 Age-related osteoporosis without current pathological fracture (principal); D69.6 Thrombocytopenia, unspecified; K74.60 Unspecified cirrhosis of liver

== ENCOUNTER → 2020-01-23 | Outpatient (CLI) | payer MEDICARE, MEDICAID ==
--- NOTE | 2020-01-23 18:07 | REP ---
INDICATION: HEMOPTYSIS. COMPARISON: Chest CT dated 02/22/2015 with IV contrast. TECHNIQUE: Chest CT without IV contrast. FINDINGS: There are no infiltrates. There are no pleural effusions. Are approximately 5 small lung nodules each measuring approximately 3-4 mm in diameter as follows: Image 28 superior segment left lower lobe. Image 47, right middle lobe. Images 63, right middle lobe. Image 65, right lower lobe. Image 70, right lower lobe. All these nodules are unchanged from the prior study and are likely stable granulomas. There is no mediastinal or axillary lymph node enlargement. In the absence of IV contrast the study is insensitive for hilar lymph node enlargement. The thoracic aorta is unremarkable. Cardiac size is normal. There is no pericardial effusion. Upper abdomen: The unenhanced hepatic parenchyma is unremarkable. There are tiny layering gallbladder calculi in the gallbladder fundus. Pancreas is unremarkable. The spleen is enlarged measuring up to 16 cm AP diameter. There are no adrenal masses or nodules. IMPRESSION: Stable lung nodules as described, likely granulomas. No infiltrates or pleural effusions. No adenopathy. Tiny layering gallbladder calculi. Splenomegaly. <Electronically signed by Андрей Newell > 01/23/20 [id number]
== END ==
LOC: M RAD 15:37
PROVIDERS: ATTEND Family Medicine
DX: R91.8 Other nonspecific abnormal finding of lung field (principal); K80.20 Calculus of gallbladder without cholecystitis without obstruction; R16.1 Splenomegaly, not elsewhere classified; R04.2 Hemoptysis; F41.1 Generalized anxiety disorder
CPT/HCPCS: 71250; 90834; G0463

== ENCOUNTER → 2020-06-11 | Outpatient (REF) | payer MEDICARE, MEDICAID ==
[2020-06-11 18:50] LABS: ALT/SGPT 20 U/L (12-78); BILIRUBIN,TOTAL 1.5 MG/DL (0.2-1.0); BLOOD UREA NITROGEN 9 MG/DL (7-18); CALCIUM LEVEL 8.7 MG/DL (8.8-10.2); CARBON DIOXIDE LEVEL 33 MEQ/L (21-32); CHLORIDE LEVEL 104 MEQ/L (98-107); CREATININE FOR GFR 0.71 MG/DL (0.55-1.30); GLOMERULAR FILTRATION RATE > 60.0 (>39); GLUCOSE, FASTING 107 MG/DL (70-100); SODIUM LEVEL 143 MEQ/L (136-145); TOTAL PROTEIN 7.1 GM/DL (6.4-8.2)
[2020-06-12 09:44] LABS: TOTAL 25(OH) VITAMIN D 34.7 NG/ML (30.0-100.0)
== END ==
LOC: M SFHCPLAZ 14:41
PROVIDERS: ATTEND Family Medicine
DX: K74.60 Unspecified cirrhosis of liver (principal); I10 Essential (primary) hypertension; E55.9 Vitamin D deficiency, unspecified
CPT/HCPCS: 36415; 80053; 82105; 82306; G0463

== ENCOUNTER → 2020-06-18 | Outpatient (CLI) | payer MEDICARE, MEDICAID ==
--- NOTE | 2020-06-18 21:43 | REP ---
INDICATION: K74.60 CIRRHOSIS OF LIVER COMPARISON: 06/21/2018 TECHNIQUE: Real time gomez scale ultrasound examination using curved array transducer. FINDINGS: Liver demonstrates coarsened echotexture without focal hepatic lesion identified. The pancreas is incompletely evaluated due to interposed bowel gas. The gallbladder demonstrates mobile gallstones without wall thickening or pericholecystic fluid. The common bile duct has increased in diameter to 13 mm. The right kidney is normal in reniform shape without hydronephrosis and measures 10.1 x 4.3 x 5.0 cm. No ascites in the visualized right upper quadrant. IMPRESSION: 1. Coarsened hepatic echotexture consistent with cirrhosis. No focal hepatic lesion. 2. Cholelithiasis and dilated common bile duct to 13 mm. Follow-up may be warranted. CBD obstruction cannot be excluded. Consider MRCP for further investigation if necessary. <Electronically signed by Rakesh Nguyen > 06/18/20 [id number]
== END ==
LOC: M WHC 10:23
PROVIDERS: ATTEND Family Medicine
DX: K74.60 Unspecified cirrhosis of liver (principal)

== ENCOUNTER → 2020-06-25 | Outpatient (REF) | payer MEDICARE, MEDICAID ==
[2020-06-25 16:03] LABS: ALBUMIN 3.1 GM/DL (3.2-5.2); ALT/SGPT 24 U/L (12-78); BILIRUBIN,DIRECT 0.3 MG/DL (0.0-0.2); BLOOD UREA NITROGEN 15 MG/DL (7-18); CARBON DIOXIDE LEVEL 30 MEQ/L (21-32); CHLORIDE LEVEL 107 MEQ/L (98-107); CREATININE FOR GFR 0.62 MG/DL (0.55-1.30); GLOMERULAR FILTRATION RATE > 60.0 (>39); GLUCOSE, FASTING 83 MG/DL (70-100); SODIUM LEVEL 140 MEQ/L (136-145); TOTAL PROTEIN 7.2 GM/DL (6.4-8.2)
== END ==
LOC: M PLALAB 13:16
PROVIDERS: ATTEND Family Medicine
DX: K74.60 Unspecified cirrhosis of liver (principal)

== ENCOUNTER 2020-08-23 07:57 | Emergency (ER) | payer MEDICARE, MEDICAID ==
[~2020-08-23] VITALS: Ht 167.6 cm; Wt 81.3 kg
[~2020-08-23 07:57] MED LIST changes: -DOXY100C37; +DOXY1CAP62
[2020-08-23] MEDS ORDERED: VITA-175 PO (08:13)
[2020-08-23] MEDS ORDERED: PROBCAP14 PO (08:13)
[2020-08-23] MEDS ORDERED: OMEGCAP4 PO (08:13)
[2020-08-23] MEDS ORDERED: LIDOCAINE 5% (LIDODERM) PATCH TD ONE (09:00)
[2020-08-23] MEDS ORDERED: PERCOCET 5MG/325MG TAB PO ONE (09:00)
[2020-08-23 09:20] LABS: BASO % 0.3 % (0.0-1.0); EOS # 0.1 10^3/uL (0.0-0.5); EOS % 1.6 % (0.0-3.0); HEMOGLOBIN 12.6 g/dl (12.0-15.5); LYMPH # 0.7 10^3/uL (1.5-5.0); LYMPH % 23.9 % (24.0-44.0); MEAN CORPUSCULAR HEMOGLOBIN 31.7 pg (27.0-33.0); MEAN CORPUSCULAR VOLUME 90.7 fl (80.0-96.0); MONO # 0.4 10^3/uL (0.0-0.8); MONO % 11.3 % (2.0-8.0); NEUTROPHILS # 1.9 10^3/uL (1.5-8.5); NEUTROPHILS % 62.6 % (36.0-66.0); RED BLOOD COUNT 3.97 10^6/uL (4.00-5.40); WHITE BLOOD COUNT 3.1 10^3/uL (4.0-10.0)
[2020-08-23 09:40] LABS: PLATELET COUNT, AUTOMATED 71 10^3/uL (150-450)
[2020-08-23 09:46] LABS: ALBUMIN 2.7 GM/DL (3.2-5.2); ALT/SGPT 20 U/L (12-78); BILIRUBIN,DIRECT 0.3 MG/DL (0.0-0.2); BILIRUBIN,TOTAL 1.1 MG/DL (0.2-1.0); BLOOD UREA NITROGEN 11 MG/DL (7-18); CALCIUM LEVEL 8.6 MG/DL (8.8-10.2); CARBON DIOXIDE LEVEL 28 MEQ/L (21-32); CHLORIDE LEVEL 106 MEQ/L (98-107); CREATININE FOR GFR 0.65 MG/DL (0.55-1.30); GLOMERULAR FILTRATION RATE > 60.0 (>39); GLUCOSE, FASTING 95 MG/DL (70-100); LIPASE 45 U/L (73-393); POTASSIUM SERUM 4.1 MEQ/L (3.5-5.1); SODIUM LEVEL 140 MEQ/L (136-145); TOTAL PROTEIN 7.2 GM/DL (6.4-8.2)
--- NOTE | 2020-08-23 09:52 | REP ---
INDICATION: abd pain COMPARISON: None. TECHNIQUE: Upright view of the chest with supine and upright views of the abdomen and pelvis. FINDINGS: Frontal upright view of the chest demonstrates no acute cardiopulmonary process or free air below the diaphragm to suspect pneumoperitoneum. Supine and upright views of the abdomen and pelvis demonstrate nonspecific bowel gas pattern without obstruction or perforation. No organomegaly. No abnormal calcifications. Skeletal structures normal for age. IMPRESSION: Nonspecific bowel gas pattern. <Electronically signed by Rakesh Nguyen > 08/23/20 [id number]
--- NOTE | 2020-08-23 09:53 | REP ---
INDICATION: CHEST PAIN. COMPARISON: None. TECHNIQUE: Single frontal view of the pelvis. FINDINGS: Osseous structures demonstrate age-related osteopenia and mild degenerative changes. There is no evidence for acute fracture or dislocation. Surrounding soft tissues are unremarkable. IMPRESSION: Age-appropriate pelvic radiograph. No acute fracture or dislocation. <Electronically signed by Rakesh Nguyen > 08/23/20 [id number]
--- NOTE | 2020-08-23 09:54 | REP ---
INDICATION: CHEST PAIN COMPARISON: None. TECHNIQUE: AP, lateral, bilateral oblique, and coned-down views of the lumbar spine. FINDINGS: Age-related osteopenia and moderate multilevel degenerative changes including endplate sclerosis, facet hypertrophy as well as focal disc space narrowing at L5-S1. No acute fracture/compression injury or subluxation. IMPRESSION: Multilevel degenerative changes. No acute fracture/compression injury or subluxation. <Electronically signed by Rakesh Nguyen > 08/23/20 [id number]
[2020-08-23] MEDS ORDERED: physical therapy (10:42)
[2020-08-23] MEDS ORDERED: LIDO5DIS41 TD (10:43)
[2020-08-23] MEDS ORDERED: COLA100C5 PO (10:43)
[2020-08-23] MEDS ORDERED: HYDR-3713 PO (10:44)
[2020-08-23 10:57] VITALS: BP 129/73
[2020-08-23] MEDS ORDERED: **NOTE PATIENT COMMENT** MISC XX SCH (21:00)
--- NOTE | 2020-08-24 16:31 | ECGEPIP ---
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
== END 2020-08-23 11:05 | disposition home or self-care (01) ==
LOC: M ED 07:57
DX: M54.5 Low back pain (principal); K59.00 Constipation, unspecified; R07.9 Chest pain, unspecified; M51.37 Other intervertebral disc degeneration, lumbosacral region; J44.9 Chronic obstructive pulmonary disease, unspecified; R91.8 Other nonspecific abnormal finding of lung field; K74.60 Unspecified cirrhosis of liver; F41.1 Generalized anxiety disorder; Z87.891 Personal history of nicotine dependence; Z88.0 Allergy status to penicillin; Z88.1 Allergy status to other antibiotic agents; Z79.899 Other long term (current) drug therapy

== ENCOUNTER → 2020-11-02 | Outpatient (CLI) | payer MEDICARE, MEDICAID ==
[~2020-11-02] MED LIST changes: +COLA100C5 PO; +HYDR-3713 PO; +LIDO5DIS41 TD; +OMEGCAP4 PO; +PROBCAP14 PO; +VITA-175 PO; +physical therapy
--- NOTE | 2020-11-02 14:12 | REP ---
INDICATION: LBP, EVAL FOR FX OF SPINE. COMPARISON: None. TECHNIQUE/RADIOTRACER AND DOSE: After the intravenous administration of 22 mCi of technetium 99 M MDP a triple phase bone scan was obtained with attention to the lumbar spine. FINDINGS: The flow portion of the examination shows no abnormal increased or decreased radionuclide accumulation. The blood pool portion examination shows subtle increased radionuclide accumulation in the L3 region. Delayed imaging shows further increased activity in the L3 region. There is also focal uptake of the anterior and of what is most likely T9 on the left. IMPRESSION: There is an age undetermined but probably 6 to 8-week-old L3 compression fracture seen on a prior plain film examination of 08/23/2020 as a grade 1 type superior endplate compression fracture. Focal uptake is also seen anteriorly involving 1 of the left ribs as described above also consistent with trauma. <Electronically signed by Angel Mcfarland > 11/02/20 8413
== END ==
LOC: M RAD 07:53
PROVIDERS: ATTEND Orthopaedic Surgery
DX: M54.5 Low back pain (principal); S32.039A Unspecified fracture of third lumbar vertebra, initial encounter for closed fracture; X58.XXXA Exposure to other specified factors, initial encounter; Y92.9 Unspecified place or not applicable
CPT/HCPCS: 78315; A9503

== ENCOUNTER → 2021-10-17 | Outpatient (CLI) | payer MEDICARE, MEDICAID ==
[~2021-10-17] MED LIST changes: -CEFD1CAP8; +CEFD300C41; +DOXY-443; -DOXY1CAP62; +LEVO1TAB39; -LEVO500T3
[2021-10-17 15:29] LABS: EOS % 1.4 % (0.0-3.0); HEMATOCRIT 35.8 % (36.0-47.0); HEMOGLOBIN 12.1 g/dl (12.0-15.5); LYMPH # 0.8 10^3/uL (1.5-5.0); LYMPH % 26.6 % (24.0-44.0); MEAN CORPUSCULAR HEMOGLOBIN 32.8 pg (27.0-33.0); MEAN CORPUSCULAR HGB CONC 33.8 g/dl (32.0-36.5); MONO # 0.3 10^3/uL (0.0-0.8); MONO % 11.9 % (2.0-8.0); NEUTROPHILS # 1.7 10^3/uL (1.5-8.5); NEUTROPHILS % 59.4 % (36.0-66.0); RED BLOOD COUNT 3.69 10^6/uL (4.00-5.40); WHITE BLOOD COUNT 2.9 10^3/uL (4.0-10.0)
[2021-10-17 15:54] LABS: HEMOGLOBIN A1c 4.5 %
[2021-10-17 15:57] LABS: ALBUMIN 2.8 GM/DL (3.2-5.2); ALT/SGPT 21 U/L (12-78); BILIRUBIN,TOTAL 1.6 MG/DL (0.2-1.0); BLOOD UREA NITROGEN 13 MG/DL (7-18); CALCIUM LEVEL 8.7 MG/DL (8.8-10.2); CARBON DIOXIDE LEVEL 32 MEQ/L (21-32); CHLORIDE LEVEL 107 MEQ/L (98-107); CHOLESTEROL LEVEL 108 MG/DL (<200); CHOLESTEROL RISK RATIO 1.687 (<5); CREATININE FOR GFR 0.66 MG/DL (0.55-1.30); FREE T4 1.16 NG/DL (0.76-1.46); GLOMERULAR FILTRATION RATE > 60.0 (>39); GLUCOSE, FASTING 78 MG/DL (70-100); HDL CHOLESTEROL 64 MG/DL (>40); LDL CHOLESTEROL 31 MG/DL (<100); NON-HDL-C 44 MG/DL; SODIUM LEVEL 141 MEQ/L (136-145); TOTAL PROTEIN 6.9 GM/DL (6.4-8.2); TRIGLYCERIDES LEVEL 63 MG/DL (<150)
[2021-10-17 16:49] LABS: PLATELET COUNT, AUTOMATED 66 10^3/uL (150-450)
[2021-10-17 17:04] LABS: TOTAL 25(OH) VITAMIN D 33.8 NG/ML (30.0-100.0)
[2021-10-17 17:05] LABS: VITAMIN B12 LEVEL 618 PG/ML (247-911)
== END ==
LOC: M PLALAB 12:15
PROVIDERS: ATTEND Internal Medicine Hematology
DX: K74.60 Unspecified cirrhosis of liver (principal); Z79.899 Other long term (current) drug therapy

== ENCOUNTER → 2021-10-22 | Outpatient (CLI) | payer MEDICARE | LOC: M RAD 09:24 | PROVIDERS: ATTEND Internal Medicine Hematology | DX: K76.9 Liver disease, unspecified (principal); K74.60 Unspecified cirrhosis of liver ==

== ENCOUNTER → 2022-06-06 | Outpatient (CLI) | payer MEDICARE, MEDICAID | LOC: M LAB 15:07 | PROVIDERS: ATTEND Physician Assistant | DX: R21 Rash and other nonspecific skin eruption (principal); M79.89 Other specified soft tissue disorders; R07.81 Pleurodynia ==

== ENCOUNTER → 2022-06-06 | Outpatient (CLI) | payer MEDICARE, MEDICAID ==
[~2022-06-06] MED LIST changes: +FURO40TA2 PO; +LACT10SO3 PO; +OMEP-173 PO; +POTA10CA33 PO; +PRED10TA2 PO; +TRIA1CR80 TOP; +VITA200031 PO
[2022-06-06 15:46] LABS: BASO % 0.5 % (0.0-1.0); EOS # 0.1 10^3/uL (0.0-0.5); EOS % 1.4 % (0.0-3.0); HEMATOCRIT 37.9 % (36.0-47.0); LYMPH # 1.3 10^3/uL (1.5-5.0); LYMPH % 30.2 % (24.0-44.0); MEAN CORPUSCULAR HEMOGLOBIN 33.7 pg (27.0-33.0); MEAN CORPUSCULAR HGB CONC 34.3 g/dl (32.0-36.5); MEAN CORPUSCULAR VOLUME 98.2 fl (80.0-96.0); MONO # 0.5 10^3/uL (0.0-0.8); MONO % 11.6 % (2.0-8.0); NEUTROPHILS # 2.3 10^3/uL (1.5-8.5); NEUTROPHILS % 56.3 % (36.0-66.0); PLATELET COUNT, AUTOMATED 100 10^3/uL (150-450); RED BLOOD COUNT 3.86 10^6/uL (4.00-5.40); WHITE BLOOD COUNT 4.1 10^3/uL (4.0-10.0)
[2022-06-06 16:06] LABS: C REACTIVE PROTEIN QUANTITATIV < 0.40 MG/DL (<1.0)
[2022-06-06 16:08] LABS: ALBUMIN 2.7 G/DL (3.2-5.2); ALKALINE PHOSPHATASE 107 U/L (46-116); ALT/SGPT 17 U/L (7.0-40); AST/SGOT 40 U/L (<34); BILIRUBIN,TOTAL 2.4 MG/DL (0.3-1.2); BLOOD UREA NITROGEN 17 MG/DL (9-23); CALCIUM LEVEL 8.4 MG/DL (8.3-10.6); CARBON DIOXIDE LEVEL 30 MMOL/L (20-31); CHLORIDE LEVEL 105 MMOL/L (98-107); CREATININE FOR GFR 0.78 MG/DL (0.55-1.30); GLOMERULAR FILTRATION RATE > 60.0 (>39); GLUCOSE, FASTING 96 MG/DL (74-106); POTASSIUM SERUM 4.3 MMOL/L (3.5-5.1); SODIUM LEVEL 138 MMOL/L (136-145); TOTAL PROTEIN 7.4 G/DL (5.7-8.2)
[2022-06-06 16:27] LABS: ERYTHROCYTE SEDIMENTATION RATE 30 mm/hr (0-30)
== END ==
LOC: M PLALAB 14:31
PROVIDERS: ATTEND Physician Assistant
DX: M85.88 Other specified disorders of bone density and structure, other site (principal); R21 Rash and other nonspecific skin eruption; R07.81 Pleurodynia; M79.89 Other specified soft tissue disorders

== ENCOUNTER 2022-06-15 10:11 | Inpatient (IN) | payer MEDICARE, MEDICAID ==
[~2022-06-15] VITALS: Ht 167.6 cm; Wt 88.5 kg
[~2022-06-15 10:11] MED LIST changes: -FURO40TA2 PO; -LACT10SO3 PO; -OMEP-173 PO; -POTA10CA33 PO; -PRED10TA2 PO; -TRIA1CR80 TOP; -VITA200031 PO
[2022-06-15] MEDS ORDERED: LIDOCAINE 5% (LIDODERM) PATCH TD ONE (10:30)
[2022-06-15] MEDS ORDERED: KETOROLAC 30 MG/ML 1ML VIAL IM ONE (10:30)
[2022-06-15] MEDS ORDERED: ACETAMINOPHEN 500 MG TAB PO ONE (10:30)
[2022-06-15] MEDS ORDERED: LORazepam 0.5 MG TAB PO STA (13:02)
[2022-06-15] MEDS ORDERED: ALPRAZolam 0.5 MG TAB PO ONE (13:15)
[2022-06-15] MEDS ORDERED: MORPHINE 2 MG/ML 1ML VIAL IV PRN (18:10)
[2022-06-15] MEDS ORDERED: ONDANSETRON 4MG 2ML VIAL IV ONE (18:10)
[2022-06-15 19:18] LABS: RSV AMPLIFICATION NEGATIVE (NEGATIVE)
[2022-06-15] MEDS ORDERED: POTA10CA33 PO (19:26)
[2022-06-15] MEDS ORDERED: OMEP-173 PO (19:26)
[2022-06-15] MEDS ORDERED: PRED10TA2 PO (19:26)
[2022-06-15] MEDS ORDERED: TRIA1CR80 TOP (19:26)
[2022-06-15] MEDS ORDERED: FURO40TA2 PO (19:26)
[2022-06-15] MEDS ORDERED: LACT10SO3 PO (19:26)
[2022-06-15] MEDS ORDERED: HOME MED LIST COMPLETE! XX SCH (19:30)
[2022-06-15] MEDS ORDERED: VITA200031 PO (19:32)
[2022-06-15] MEDS ORDERED: clonazePAM 0.5 MG TAB PO PRN (19:35)
[2022-06-15] MEDS ORDERED: CALCITONIN NASAL SPRAY 3.7ML BTL ONE (20:00)
[2022-06-15 20:18] LABS: BASO % 0.3 % (0.0-1.0); EOS # 0.1 10^3/uL (0.0-0.5); EOS % 2.7 % (0.0-3.0); HEMATOCRIT 32.5 % (36.0-47.0); HEMOGLOBIN 11.3 g/dl (12.0-15.5); LYMPH % 32.1 % (24.0-44.0); MEAN CORPUSCULAR HEMOGLOBIN 33.5 pg (27.0-33.0); MEAN CORPUSCULAR HGB CONC 34.8 g/dl (32.0-36.5); MEAN CORPUSCULAR VOLUME 96.4 fl (80.0-96.0); MONO # 0.4 10^3/uL (0.0-0.8); MONO % 12.4 % (2.0-8.0); NEUTROPHILS # 1.6 10^3/uL (1.5-8.5); NEUTROPHILS % 52.2 % (36.0-66.0); RED BLOOD COUNT 3.37 10^6/uL (4.00-5.40)
[2022-06-15 20:19] LABS: PLATELET COUNT, AUTOMATED 68 10^3/uL (150-450)
[2022-06-15 20:50] LABS: ALBUMIN 2.2 G/DL (3.2-5.2); ALKALINE PHOSPHATASE 85 U/L (46-116); ALT/SGPT 20 U/L (7.0-40); AST/SGOT 40 U/L (<34); BILIRUBIN,TOTAL 1.7 MG/DL (0.3-1.2); BLOOD UREA NITROGEN 20 MG/DL (9-23); CALCIUM LEVEL 7.5 MG/DL (8.3-10.6); CARBON DIOXIDE LEVEL 34 MMOL/L (20-31); CHLORIDE LEVEL 106 MMOL/L (98-107); CREATININE FOR GFR 0.76 MG/DL (0.55-1.30); GLOMERULAR FILTRATION RATE > 60.0 (>39); GLUCOSE, FASTING 75 MG/DL (74-106); POTASSIUM SERUM 3.7 MMOL/L (3.5-5.1); SODIUM LEVEL 140 MMOL/L (136-145)
[2022-06-15] MEDS: LACTULOSE 20GM/30ML SYRUP UDC PO SCH (20:54)
[2022-06-15] MEDS: DOCUSATE SODIUM 100MG CAPSULE PO SCH (20:55)
[2022-06-15] MEDS: oxyCODONE 5MG TAB PO PRN (21:03)
[2022-06-15] MEDS: TRIAMCINOLONE ACET 0.1% CREAM 80GM TOP SCH (21:11)
[2022-06-15 21:57] VITALS: BP 106/63
[2022-06-15] MEDS ORDERED: CALCIUM CARBONATE 500 MG CHEW U/D PO ONE (23:15)
[2022-06-16 05:34] VITALS: BP 108/63
[2022-06-16] MEDS: oxyCODONE 5MG TAB PO PRN ×3 (05:47→21:03)
[2022-06-16] MEDS: ACETAMINOPHEN TAB 650MG DOSE (2X325MG) PO PRN ×2 (06:52→16:44)
[2022-06-16 07:05] LABS: HEMATOCRIT 32.2 % (36.0-47.0); MEAN CORPUSCULAR HEMOGLOBIN 33.6 pg (27.0-33.0); MEAN CORPUSCULAR HGB CONC 34.2 g/dl (32.0-36.5); MEAN CORPUSCULAR VOLUME 98.5 fl (80.0-96.0); RED BLOOD COUNT 3.27 10^6/uL (4.00-5.40)
[2022-06-16 07:07] LABS: PLATELET COUNT, AUTOMATED 68 10^3/uL (150-450)
[2022-06-16 07:29] LABS: INR 1.22; PROTHROMBIN TIME 15.7 SECONDS (12.5-14.5)
[2022-06-16 07:30] LABS: PARTIAL THROMBOPLASTIN TIME 32.2 SECONDS (24.8-34.2)
[2022-06-16 07:32] LABS: BLOOD UREA NITROGEN 24 MG/DL (9-23); CALCIUM LEVEL 7.5 MG/DL (8.3-10.6); CARBON DIOXIDE LEVEL 33 MMOL/L (20-31); CHLORIDE LEVEL 105 MMOL/L (98-107); CREATININE FOR GFR 0.86 MG/DL (0.55-1.30); GLOMERULAR FILTRATION RATE > 60.0 (>39); GLUCOSE, FASTING 83 MG/DL (74-106); MAGNESIUM LEVEL 2.1 MG/DL (1.8-2.4); POTASSIUM SERUM 3.5 MMOL/L (3.5-5.1); SODIUM LEVEL 139 MMOL/L (136-145)
[2022-06-16] MEDS: ENOXAPARIN 40MG/0.4ML SYRINGE (J1650 PER 10MG) SC SCH (08:13)
[2022-06-16] MEDS: LACTULOSE 20GM/30ML SYRUP UDC PO SCH ×2 (08:18→20:06)
[2022-06-16] MEDS: FUROSEMIDE 40 MG TAB PO SCH (08:19)
[2022-06-16] MEDS: DOCUSATE SODIUM 100MG CAPSULE PO SCH ×3 (08:19→20:06)
[2022-06-16] MEDS: POTASSIUM CHLORIDE 10MEQ SR TABLET PO SCH (08:19)
[2022-06-16] MEDS: OMEPRAZOLE 20MG CAP PO SCH (08:19)
[2022-06-16] MEDS: CALCITONIN NASAL SPRAY 3.7ML BTL SCH (08:20)
[2022-06-16] MEDS: TRIAMCINOLONE ACET 0.1% CREAM 80GM TOP SCH ×2 (08:21→20:07)
[2022-06-16] MEDS: METHADONE 10MG TAB PO SCH (08:23)
[2022-06-16 14:00] VITALS: BP 133/80
[2022-06-16 19:41] VITALS: BP 132/81
[2022-06-17] MEDS: oxyCODONE 5MG TAB PO PRN ×3 (05:35→22:02)
[2022-06-17 05:52] VITALS: BP 129/76
[2022-06-17 07:51] VITALS: BP 120/72
[2022-06-17 08:07] LABS: BASO % 0.4 % (0.0-1.0); EOS # 0.1 10^3/uL (0.0-0.5); EOS % 2.8 % (0.0-3.0); HEMATOCRIT 33.5 % (36.0-47.0); HEMOGLOBIN 11.3 g/dl (12.0-15.5); LYMPH # 0.8 10^3/uL (1.5-5.0); LYMPH % 31.6 % (24.0-44.0); MEAN CORPUSCULAR HEMOGLOBIN 33.2 pg (27.0-33.0); MEAN CORPUSCULAR HGB CONC 33.7 g/dl (32.0-36.5); MEAN CORPUSCULAR VOLUME 98.5 fl (80.0-96.0); MONO # 0.4 10^3/uL (0.0-0.8); MONO % 14.2 % (2.0-8.0); NEUTROPHILS # 1.3 10^3/uL (1.5-8.5); NEUTROPHILS % 50.6 % (36.0-66.0); WHITE BLOOD COUNT 2.5 10^3/uL (4.0-10.0)
[2022-06-17 08:15] LABS: PLATELET COUNT, AUTOMATED 60 10^3/uL (150-450)
[2022-06-17 08:35] LABS: ALBUMIN 2.2 G/DL (3.2-5.2); ALKALINE PHOSPHATASE 84 U/L (46-116); ALT/SGPT 23 U/L (7.0-40); AST/SGOT 41 U/L (<34); BILIRUBIN,TOTAL 1.6 MG/DL (0.3-1.2); BLOOD UREA NITROGEN 20 MG/DL (9-23); CALCIUM LEVEL 7.2 MG/DL (8.3-10.6); CARBON DIOXIDE LEVEL 32 MMOL/L (20-31); CHLORIDE LEVEL 104 MMOL/L (98-107); CREATININE FOR GFR 0.76 MG/DL (0.55-1.30); GLOMERULAR FILTRATION RATE > 60.0 (>39); GLUCOSE, FASTING 90 MG/DL (74-106); MAGNESIUM LEVEL 2.1 MG/DL (1.8-2.4); PHOSPHORUS LEVEL 3.5 MG/DL (2.4-5.1); POTASSIUM SERUM 3.9 MMOL/L (3.5-5.1); SODIUM LEVEL 139 MMOL/L (136-145); TOTAL PROTEIN 5.9 G/DL (5.7-8.2)
[2022-06-17 08:37] LABS: TOTAL 25(OH) VITAMIN D 36.1 NG/ML (20.0-100.0)
[2022-06-17] MEDS: ENOXAPARIN 40MG/0.4ML SYRINGE (J1650 PER 10MG) SC SCH (09:00)
[2022-06-17] MEDS: POTASSIUM CHLORIDE 10MEQ SR TABLET PO SCH (09:31)
[2022-06-17] MEDS: OMEPRAZOLE 20MG CAP PO SCH (09:31)
[2022-06-17] MEDS: METHADONE 10MG TAB PO SCH (09:31)
[2022-06-17] MEDS: LACTULOSE 20GM/30ML SYRUP UDC PO SCH ×2 (09:32→20:22)
[2022-06-17] MEDS: FUROSEMIDE 40 MG TAB PO SCH (09:32)
[2022-06-17] MEDS: DOCUSATE SODIUM 100MG CAPSULE PO SCH ×2 (09:32→20:22)
[2022-06-17] MEDS: TRIAMCINOLONE ACET 0.1% CREAM 80GM TOP SCH ×2 (09:41→20:22)
[2022-06-17] MEDS: CALCITONIN NASAL SPRAY 3.7ML BTL SCH (09:41)
[2022-06-17 10:20] VITALS: BP 136/60
[2022-06-17 14:15] VITALS: BP 126/75
[2022-06-17 23:53] VITALS: BP 122/79
[2022-06-18 05:29] VITALS: BP 107/67
[2022-06-18 06:56] LABS: BASO % 0.4 % (0.0-1.0); EOS # 0.1 10^3/uL (0.0-0.5); EOS % 3.4 % (0.0-3.0); HEMATOCRIT 32.6 % (36.0-47.0); HEMOGLOBIN 10.8 g/dl (12.0-15.5); LYMPH # 0.8 10^3/uL (1.5-5.0); LYMPH % 30.6 % (24.0-44.0); MEAN CORPUSCULAR HGB CONC 33.1 g/dl (32.0-36.5); MEAN CORPUSCULAR VOLUME 99.7 fl (80.0-96.0); MONO # 0.4 10^3/uL (0.0-0.8); MONO % 14.6 % (2.0-8.0); NEUTROPHILS # 1.4 10^3/uL (1.5-8.5); NEUTROPHILS % 50.6 % (36.0-66.0); RED BLOOD COUNT 3.27 10^6/uL (4.00-5.40); WHITE BLOOD COUNT 2.7 10^3/uL (4.0-10.0)
[2022-06-18 07:02] LABS: PLATELET COUNT, AUTOMATED 67 10^3/uL (150-450)
[2022-06-18 07:08] LABS: BLOOD UREA NITROGEN 16 MG/DL (9-23); CALCIUM LEVEL 6.6 MG/DL (8.3-10.6); CARBON DIOXIDE LEVEL 32 MMOL/L (20-31); CHLORIDE LEVEL 105 MMOL/L (98-107); CREATININE FOR GFR 0.72 MG/DL (0.55-1.30); GLOMERULAR FILTRATION RATE > 60.0 (>39); GLUCOSE, FASTING 76 MG/DL (74-106); SODIUM LEVEL 138 MMOL/L (136-145)
[2022-06-18] MEDS: LACTULOSE 20GM/30ML SYRUP UDC PO SCH (08:12)
[2022-06-18] MEDS: METHADONE 10MG TAB PO SCH (08:13)
[2022-06-18] MEDS: OMEPRAZOLE 20MG CAP PO SCH (08:13)
[2022-06-18] MEDS: POTASSIUM CHLORIDE 10MEQ SR TABLET PO SCH (08:13)
[2022-06-18] MEDS: DOCUSATE SODIUM 100MG CAPSULE PO SCH (08:13)
[2022-06-18] MEDS: FUROSEMIDE 40 MG TAB PO SCH (08:13)
[2022-06-18] MEDS: ENOXAPARIN 40MG/0.4ML SYRINGE (J1650 PER 10MG) SC SCH (08:15)
[2022-06-18] MEDS: oxyCODONE 5MG TAB PO PRN ×2 (08:18→14:14)
[2022-06-18] MEDS: TRIAMCINOLONE ACET 0.1% CREAM 80GM TOP SCH (08:20)
[2022-06-18] MEDS: CALCITONIN NASAL SPRAY 3.7ML BTL SCH (08:21)
[2022-06-18] MEDS ORDERED: SENNA 8.6 MG TAB (SENOKOT) PO SCH (09:00)
[2022-06-18] MEDS ORDERED: LOVE1INJ SC (13:22)
[2022-06-18] MEDS ORDERED: OXYC-517 PO (13:22)
[2022-06-18 13:45] VITALS: BP 123/73
== END 2022-06-18 14:25 | disposition short-term general hospital (02) | DRG 543 ==
LOC: EDBD 10:11 → M ED 10:11 → M ED INP 19:02 → M MS5PR 19:52
PROVIDERS: ADMIT Internal Medicine; ATTEND Internal Medicine
DX: M80.08XA Age-related osteoporosis with current pathological fracture, vertebra(e), initial encounter for fracture (principal); D61.818 Other pancytopenia; K21.9 Gastro-esophageal reflux disease without esophagitis; K74.60 Unspecified cirrhosis of liver; N18.30 Chronic kidney disease, stage 3 unspecified; J44.9 Chronic obstructive pulmonary disease, unspecified; D69.6 Thrombocytopenia, unspecified; F41.9 Anxiety disorder, unspecified; F32.A Depression, unspecified; B19.20 Unspecified viral hepatitis C without hepatic coma; Z88.0 Allergy status to penicillin; Z88.5 Allergy status to narcotic agent; Z79.899 Other long term (current) drug therapy; F11.90 Opioid use, unspecified, uncomplicated

== ENCOUNTER → 2023-01-20 | Outpatient (CLI) | payer MEDICARE, MEDICAID ==
[~2023-01-20] MED LIST changes: +CEFD1CAP9; -CEFD300C41; +FURO40TA2 PO; +LACT10SO3 PO; +LOVE1INJ SC; +OMEP-173 PO; +OXYC-517 PO; +POTA10CA60 PO; +PRED10TA2 PO; +TRIA1CR80 TOP; +VITA200031 PO
[2023-01-20 11:56] LABS: HEMATOCRIT 34.2 % (36.0-47.0); HEMOGLOBIN 11.5 g/dl (12.0-15.5); MEAN CORPUSCULAR HEMOGLOBIN 33.5 pg (27.0-33.0); MEAN CORPUSCULAR HGB CONC 33.6 g/dl (32.0-36.5); MEAN CORPUSCULAR VOLUME 99.7 fl (80.0-96.0); RED BLOOD COUNT 3.43 10^6/uL (4.00-5.40); WHITE BLOOD COUNT 2.2 10^3/uL (4.0-10.0)
[2023-01-20 11:59] LABS: PLATELET COUNT, AUTOMATED 64 10^3/uL (150-450)
[2023-01-20 12:19] LABS: C REACTIVE PROTEIN QUANTITATIV < 0.40 MG/DL (<1.0)
[2023-01-20 12:20] LABS: IRON (FE) 202 UG/DL (50-170)
[2023-01-20 12:24] LABS: THYROID STIMULATING HORMONE 3.932 uIU/ML (0.55-4.78)
[2023-01-20 12:25] LABS: TOTAL 25(OH) VITAMIN D 32.1 NG/ML (20.0-100.0); VITAMIN B12 LEVEL 600 PG/ML (211-911)
[2023-01-20 12:34] LABS: ALBUMIN 2.6 G/DL (3.2-5.2); ALKALINE PHOSPHATASE 75 U/L (46-116); ALT/SGPT 18 U/L (7.0-40); AST/SGOT 43 U/L (<34); BILIRUBIN,TOTAL 2.2 MG/DL (0.3-1.2); BLOOD UREA NITROGEN 15 MG/DL (9-23); CALCIUM LEVEL 7.8 MG/DL (8.3-10.6); CARBON DIOXIDE LEVEL 31 MMOL/L (20-31); CHLORIDE LEVEL 108 MMOL/L (98-107); CHOLESTEROL LEVEL 142 MG/DL (<200); CHOLESTEROL RISK RATIO 2.86 (<5); CREATININE FOR GFR 0.77 MG/DL (0.55-1.30); GLOMERULAR FILTRATION RATE > 60.0 (>39); GLUCOSE, FASTING 87 MG/DL (74-106); HDL CHOLESTEROL 49.5 MG/DL (>40); LDL CHOLESTEROL 80.1 MG/DL (<100); NON-HDL-C 92.5 MG/DL; POTASSIUM SERUM 4.1 MMOL/L (3.5-5.1); SODIUM LEVEL 143 MMOL/L (136-145); TOTAL PROTEIN 6.4 G/DL (5.7-8.2); TRIGLYCERIDES LEVEL 62 MG/DL (<150)
[2023-01-20 12:44] LABS: MAU/CREAT RATIO 2.6 MCG/MG (0.0-30.0)
== END ==
LOC: M LAB 11:05
PROVIDERS: ATTEND Internal Medicine Hematology
DX: K74.60 Unspecified cirrhosis of liver (principal); Z13.220 Encounter for screening for lipoid disorders; Z79.899 Other long term (current) drug therapy

== ENCOUNTER → 2023-03-26 | Outpatient (CLI) | payer MEDICARE, MEDICAID | LOC: M RAD 09:24 | PROVIDERS: ATTEND Physician Assistant | DX: M41.9 Scoliosis, unspecified (principal); M51.06 Intervertebral disc disorders with myelopathy, lumbar region; R93.7 Abnormal findings on diagnostic imaging of other parts of musculoskeletal system ==

== ENCOUNTER → 2023-06-10 | Outpatient (CLI) | payer MEDICARE, MEDICAID ==
[~2023-06-10] MED LIST changes: +DOXY-323; -DOXY-443; -POTA10CA60 PO; +POTA10CA70 PO
[2023-06-10 18:01] LABS: BASO % 0.4 % (0.0-1.0); EOS % 1.5 % (0.0-3.0); HEMATOCRIT 32.9 % (36.0-47.0); HEMOGLOBIN 11.2 g/dl (12.0-15.5); LYMPH # 0.9 10^3/uL (1.5-5.0); LYMPH % 33.1 % (24.0-44.0); MEAN CORPUSCULAR HEMOGLOBIN 33.5 pg (27.0-33.0); MEAN CORPUSCULAR VOLUME 98.5 fl (80.0-96.0); MONO # 0.3 10^3/uL (0.0-0.8); MONO % 9.9 % (2.0-8.0); NEUTROPHILS # 1.4 10^3/uL (1.5-8.5); NEUTROPHILS % 54.7 % (36.0-66.0); RED BLOOD COUNT 3.34 10^6/uL (4.00-5.40); WHITE BLOOD COUNT 2.6 10^3/uL (4.0-10.0)
[2023-06-10 18:04] LABS: PLATELET COUNT, AUTOMATED 66 10^3/uL (150-450)
[2023-06-10 18:30] LABS: C REACTIVE PROTEIN QUANTITATIV < 0.40 MG/DL (<1.0)
[2023-06-10 18:36] LABS: ALBUMIN 2.6 G/DL (3.2-5.2); ALKALINE PHOSPHATASE 125 U/L (46-116); ALT/SGPT 12 U/L (7.0-40); AST/SGOT 41 U/L (<34); BILIRUBIN,TOTAL 2.1 MG/DL (0.3-1.2); BLOOD UREA NITROGEN 15 MG/DL (9-23); CARBON DIOXIDE LEVEL 29 MMOL/L (20-31); CHLORIDE LEVEL 103 MMOL/L (98-107); CHOLESTEROL LEVEL 154 MG/DL (<200); CHOLESTEROL RISK RATIO 3.31 (<5); CREATININE FOR GFR 0.75 MG/DL (0.55-1.30); FREE T4 0.94 NG/DL (0.89-1.76); GLOMERULAR FILTRATION RATE > 60.0 (>39); GLUCOSE, FASTING 69 MG/DL (74-106); HDL CHOLESTEROL 46.5 MG/DL (>40); LDL CHOLESTEROL 90.7 MG/DL (<100); NON-HDL-C 107.5 MG/DL; POTASSIUM SERUM 3.6 MMOL/L (3.5-5.1); SODIUM LEVEL 139 MMOL/L (136-145); THYROID STIMULATING HORMONE 2.065 uIU/ML (0.55-4.78); TOTAL 25(OH) VITAMIN D 29.4 NG/ML (20.0-100.0); TOTAL PROTEIN 6.4 G/DL (5.7-8.2); TRIGLYCERIDES LEVEL 84 MG/DL (<150); VITAMIN B12 LEVEL 562 PG/ML (211-911)
[2023-06-10 18:43] LABS: CREATININE, URINE 258.9 MG/DL
[2023-06-10 18:52] LABS: HEMOGLOBIN A1c 4.2 % (4.0-6.0)
== END ==
LOC: M PLALAB 15:32
PROVIDERS: ATTEND Internal Medicine Hematology
DX: K74.60 Unspecified cirrhosis of liver (principal); I10 Essential (primary) hypertension; Z79.899 Other long term (current) drug therapy

== ENCOUNTER → 2023-06-10 | Outpatient (CLI) | payer MEDICARE, MEDICAID | LOC: M LAB 16:21 | PROVIDERS: ATTEND Internal Medicine Hematology | DX: K74.60 Unspecified cirrhosis of liver (principal) ==

== ENCOUNTER → 2023-12-03 | Outpatient (CLI) | payer MEDICARE, MEDICAID ==
[~2023-12-03] MED LIST changes: -DOXY-323; +DOXY-441
[2023-12-03 18:41] LABS: BASO % 0.3 % (0.0-1.0); EOS % 1.4 % (0.0-3.0); HEMATOCRIT 33.9 % (36.0-47.0); HEMOGLOBIN 11.5 g/dl (12.0-15.5); LYMPH # 0.9 10^3/uL (1.5-5.0); LYMPH % 29.7 % (24.0-44.0); MEAN CORPUSCULAR HGB CONC 33.9 g/dl (32.0-36.5); MEAN CORPUSCULAR VOLUME 100.3 fl (80.0-96.0); MONO # 0.3 10^3/uL (0.0-0.8); MONO % 11.5 % (2.0-8.0); NEUTROPHILS # 1.6 10^3/uL (1.5-8.5); NEUTROPHILS % 56.8 % (36.0-66.0); RED BLOOD COUNT 3.38 10^6/uL (4.00-5.40); WHITE BLOOD COUNT 2.9 10^3/uL (4.0-10.0)
[2023-12-03 18:56] LABS: PLATELET COUNT, AUTOMATED 61 10^3/uL (150-450)
[2023-12-03 19:31] LABS: FREE T4 1.01 NG/DL (0.89-1.76); THYROID STIMULATING HORMONE 2.221 uIU/ML (0.55-4.78)
[2023-12-03 19:32] LABS: TOTAL 25(OH) VITAMIN D 32.5 NG/ML (20.0-100.0)
[2023-12-03 19:34] LABS: VITAMIN B12 LEVEL 629 PG/ML (211-911)
[2023-12-03 19:35] LABS: C REACTIVE PROTEIN QUANTITATIV < 0.40 MG/DL (<1.0)
[2023-12-03 19:37] LABS: ALBUMIN 2.6 G/DL (3.2-5.2); ALKALINE PHOSPHATASE 91 U/L (46-116); ALT/SGPT 18 U/L (7.0-40); AST/SGOT 41 U/L (<34); BILIRUBIN,TOTAL 1.6 MG/DL (0.3-1.2); BLOOD UREA NITROGEN 16 MG/DL (9-23); CALCIUM LEVEL 8.9 MG/DL (8.3-10.6); CARBON DIOXIDE LEVEL 29 MMOL/L (20-31); CHLORIDE LEVEL 108 MMOL/L (98-107); CHOLESTEROL LEVEL 141 MG/DL (<200); CHOLESTEROL RISK RATIO 2.53 (<5); CREATININE FOR GFR 0.74 MG/DL (0.55-1.30); GLOMERULAR FILTRATION RATE > 60.0 (>39); GLUCOSE, FASTING 66 MG/DL (74-106); HDL CHOLESTEROL 55.6 MG/DL (>40); LDL CHOLESTEROL 73.2 MG/DL (<100); NON-HDL-C 85.4 MG/DL; POTASSIUM SERUM 4.3 MMOL/L (3.5-5.1); SODIUM LEVEL 142 MMOL/L (136-145); TOTAL PROTEIN 6.4 G/DL (5.7-8.2); TRIGLYCERIDES LEVEL 61 MG/DL (<150)
[2023-12-03 19:41] LABS: HEMOGLOBIN A1c 4.2 % (4.0-6.0)
== END ==
LOC: M PLALAB 15:38
PROVIDERS: ATTEND Internal Medicine Hematology
DX: K74.60 Unspecified cirrhosis of liver (principal); Z79.899 Other long term (current) drug therapy

== ENCOUNTER → 2024-01-01 | Outpatient (CLI) | payer MEDICARE, MEDICAID ==
[~2024-01-01] MED LIST changes: -LACT10SO3 PO; +LACT10SO94 PO
== END ==
LOC: M RAD 09:22
PROVIDERS: ATTEND Student in an Organized Health Care Education/Training Program
DX: K74.60 Unspecified cirrhosis of liver (principal); K80.20 Calculus of gallbladder without cholecystitis without obstruction

== ENCOUNTER → 2024-06-02 | Outpatient (REF) | payer MEDICARE, MEDICAID ==
[2024-06-02 18:37] LABS: BASO % 0.3 % (0.0-1.0); EOS # 0.1 10^3/uL (0.0-0.5); EOS % 2.3 % (0.0-3.0); HEMATOCRIT 36.5 % (36.0-47.0); HEMOGLOBIN 12.4 g/dl (12.0-15.5); LYMPH # 1.1 10^3/uL (1.5-5.0); LYMPH % 30.8 % (24.0-44.0); MEAN CORPUSCULAR VOLUME 97.1 fl (80.0-96.0); MONO # 0.4 10^3/uL (0.0-0.8); MONO % 12.3 % (2.0-8.0); NEUTROPHILS # 1.9 10^3/uL (1.5-8.5); NEUTROPHILS % 54.3 % (36.0-66.0); RED BLOOD COUNT 3.76 10^6/uL (4.00-5.40); WHITE BLOOD COUNT 3.5 10^3/uL (4.0-10.0)
[2024-06-02 18:41] LABS: CHOLESTEROL RISK RATIO 2.18 (<5); HDL CHOLESTEROL 65.1 MG/DL (>40); LDL CHOLESTEROL 60.5 MG/DL (<100); NON-HDL-C 76.9 MG/DL; PLATELET COUNT, AUTOMATED 69 10^3/uL (150-450); THYROID STIMULATING HORMONE 1.529 uIU/ML (0.55-4.78)
[2024-06-02 18:42] LABS: FREE T4 1.02 NG/DL (0.89-1.76); VITAMIN B12 LEVEL 708 PG/ML (211-911)
[2024-06-02 18:47] LABS: C REACTIVE PROTEIN QUANTITATIV < 0.50 MG/DL (<1.0)
[2024-06-02 18:49] LABS: ALBUMIN 2.9 G/DL (3.2-5.2); ALKALINE PHOSPHATASE 87 U/L (35-104); ALT/SGPT 20 U/L (7.0-40); AST/SGOT 41 U/L (<34); BILIRUBIN,TOTAL 1.6 MG/DL (0.3-1.2); BLOOD UREA NITROGEN 14 MG/DL (9-23); CALCIUM LEVEL 8.8 MG/DL (8.3-10.6); CARBON DIOXIDE LEVEL 30 MMOL/L (20-31); CHLORIDE LEVEL 103 MMOL/L (98-107); CREATININE FOR GFR 0.65 MG/DL (0.55-1.30); GLOMERULAR FILTRATION RATE > 90.0 (>39); GLUCOSE, FASTING 66 MG/DL (74-106); POTASSIUM SERUM 3.5 MMOL/L (3.5-5.1); SODIUM LEVEL 141 MMOL/L (136-145); TOTAL PROTEIN 6.7 G/DL (5.7-8.2)
[2024-06-02 21:23] LABS: HEMOGLOBIN A1c 4.4 % (4.0-6.0)
[2024-06-03 13:03] LABS: CREATININE, URINE 168.4 MG/DL
[2024-06-03 13:04] LABS: MAU/CREAT RATIO 5.9 MCG/MG (0.0-30.0)
== END ==
LOC: M SFHCPLAZ 14:00
PROVIDERS: ATTEND Student in an Organized Health Care Education/Training Program
DX: K74.60 Unspecified cirrhosis of liver (principal); F41.1 Generalized anxiety disorder; Z79.899 Other long term (current) drug therapy

== ENCOUNTER 2024-12-21 11:01 | Inpatient (IN) | payer MEDICARE, MEDICAID ==
[~2024-12-21] VITALS: Ht 167.6 cm; Wt 88.0 kg
[~2024-12-21 11:01] MED LIST changes: +LIDO1ADH93 TD; -LIDO5DIS41 TD
[2024-12-21] MEDS: PERCOCET 5MG/325MG TAB PO ONE (11:36)
[2024-12-21 12:33] LABS: BASO # 0.0 10^3/uL (0.0-0.2); BASO % 0.3 % (0.0-1.0); EOS # 0.0 10^3/uL (0.0-0.5); EOS % 1.2 % (0.0-3.0); LYMPH # 0.8 10^3/uL (1.5-5.0); LYMPH % 23.7 % (24.0-44.0); MONO # 0.4 10^3/uL (0.0-0.8); MONO % 12.0 % (2.0-8.0); NEUTROPHILS # 2.0 10^3/uL (1.5-8.5); NEUTROPHILS % 62.8 % (36.0-66.0)
[2024-12-21 12:36] LABS: PLATELET COUNT, AUTOMATED 69 10^3/uL (150-450)
[2024-12-21 12:53] LABS: ALT/SGPT 22 U/L (7.0-40); AST/SGOT 52 U/L (<34); CALCIUM LEVEL 9.5 MG/DL (8.3-10.6); CARBON DIOXIDE LEVEL 31 MMOL/L (20-31); CHLORIDE LEVEL 102 MMOL/L (98-107); CREATININE FOR GFR 0.65 MG/DL (0.55-1.30); GLOMERULAR FILTRATION RATE > 90.0 (>39); POTASSIUM SERUM 4.1 MMOL/L (3.5-5.1); SODIUM LEVEL 140 MMOL/L (136-145)
[2024-12-21] MEDS ORDERED: HOME MED LIST COMPLETE! XX SCH (15:55)
[2024-12-21 20:00] VITALS: BP 144/72; TEMP 98.2; O2SAT 93
[2024-12-21] MEDS: ACETAMINOPHEN 500 MG TAB PO SCH (21:29)
[2024-12-21] MEDS: LACTULOSE 20 GM/30 ML SYRUP UDC PO SCH (21:29)
[2024-12-22] MEDS: clonazePAM 0.5 MG TAB PO PRN (02:35)
[2024-12-22 07:03] VITALS: BP 127/73; TEMP 98.3; O2SAT 93
[2024-12-22 07:25] LABS: PLATELET COUNT, AUTOMATED 71 10^3/uL (150-450)
[2024-12-22 07:48] LABS: ALT/SGPT 18.0 U/L (7.0-40); AST/SGOT 43.0 U/L (<34); CALCIUM LEVEL 9.2 MG/DL (8.3-10.6); CARBON DIOXIDE LEVEL 31.0 MMOL/L (20-31); CHLORIDE LEVEL 104.0 MMOL/L (98-107); CREATININE FOR GFR 0.72 MG/DL (0.55-1.30); GLOMERULAR FILTRATION RATE 87.7 (>39); POTASSIUM SERUM 3.6 MMOL/L (3.5-5.1); SODIUM LEVEL 142.0 MMOL/L (136-145)
[2024-12-22] MEDS: BISACODYL 10 MG SUPP PR SCH (09:00)
[2024-12-22] MEDS ORDERED: METHADONE 10 MG TAB PO SCH (09:00)
[2024-12-22] MEDS: METHADONE 5 MG TAB PO SCH (09:09)
[2024-12-22 09:10] VITALS: BP 124/60; TEMP 100; O2SAT 95
[2024-12-22 14:00] VITALS: BP 134/83; TEMP 98; O2SAT 97
[2024-12-22] MEDS: LACTULOSE 20 GM/30 ML SYRUP UDC PO SCH (15:57)
[2024-12-22 20:00] VITALS: BP 110/60; TEMP 98.6; O2SAT 94
[2024-12-22] MEDS: traZODone 25MG PER 1/2 TABLET PO PRN (20:21)
[2024-12-23 04:00] VITALS: BP 112/54; TEMP 98.8; O2SAT 91
[2024-12-23 14:00] VITALS: BP 118/64; TEMP 92.2; O2SAT 92
[2024-12-23 19:54] VITALS: BP 98/54; TEMP 98.3; O2SAT 92
[2024-12-24 04:45] VITALS: BP 102/50; TEMP 98.2; O2SAT 92
[2024-12-24] MEDS ORDERED: BISACODYL 10 MG SUPP PR PRN (07:25)
[2024-12-24] MEDS ORDERED: PILL CUTTER 1 EACH XX PRN (07:45)
[2024-12-24] MEDS: ACETAMINOPHEN 500 MG TAB PO SCH (09:00)
[2024-12-24] MEDS: LACTULOSE 20 GM/30 ML SYRUP UDC PO SCH (09:20)
[2024-12-24 14:29] VITALS: BP 103/51; TEMP 98.6; O2SAT 95
[2024-12-24 20:00] VITALS: BP 125/57; TEMP 98.3; O2SAT 93
[2024-12-25 05:33] VITALS: BP 115/59; TEMP 97.6; O2SAT 92
[2024-12-25 14:37] VITALS: BP 100/54; TEMP 98.3; O2SAT 87
[2024-12-25 19:56] VITALS: BP 107/69; TEMP 98.3; O2SAT 93
[2024-12-26 05:02] VITALS: BP 115/68; TEMP 97.9; O2SAT 92
[2024-12-26 09:00] VITALS: BP 114/70; TEMP 97.9; O2SAT 90
[2024-12-26] MEDS: LACTULOSE 20 GM/30 ML SYRUP UDC PO SCH (09:47)
[2024-12-26 14:00] VITALS: BP 104/66; TEMP 98.5; O2SAT 95
[2024-12-26 20:47] VITALS: BP 105/57; TEMP 99.3; O2SAT 92
[2024-12-27 06:36] VITALS: BP 115/55; TEMP 98.4; O2SAT 92
[2024-12-27 14:00] VITALS: BP 120/62; TEMP 98.3; O2SAT 94
[2024-12-27 20:19] VITALS: BP 110/58; TEMP 98.8; O2SAT 95
[2024-12-28 06:27] VITALS: BP 113/55; TEMP 98.2; O2SAT 91
[2024-12-28 11:36] VITALS: BP 108/62; TEMP 98.4; O2SAT 92
[2024-12-29 06:21] VITALS: BP 97/55; TEMP 98.1; O2SAT 92
[2024-12-29] MEDS ORDERED: LIDOCAINE 5% PATCH TD PRN (16:45)
[2024-12-29] MEDS: DICLOFENAC EPOLAMINE 1.3% PATCH TOP SCH (17:41)
[2024-12-29] MEDS: IBUPROFEN 800 MG TAB PO SCH (17:41)
[2024-12-30 06:08] VITALS: BP 93/52; TEMP 98.3; O2SAT 89
[2024-12-30] MEDS: METHADONE 5 MG TAB PO SCH (11:23)
[2024-12-31 05:04] VITALS: BP 103/54; TEMP 97.8; O2SAT 92
[2025-01-01 05:05] VITALS: BP 101/51; TEMP 98.1; O2SAT 92
[2025-01-02 05:25] VITALS: BP 105/58; TEMP 98; O2SAT 95
[2025-01-02 08:45] VITALS: BP 112/72; TEMP 98.1; O2SAT 93
[2025-01-03 06:03] VITALS: BP 109/54; TEMP 98.1; O2SAT 96
[2025-01-04 05:52] VITALS: BP 101/58; TEMP 98; O2SAT 92
[2025-01-04 10:53] VITALS: BP 118/74; TEMP 98.3; O2SAT 99
[2025-01-05 06:21] VITALS: BP 106/58; TEMP 98.3; O2SAT 96
[2025-01-05 09:30] VITALS: BP 99/59; TEMP 98.2; O2SAT 95
[2025-01-06 06:18] VITALS: BP 106/53; TEMP 98.3; O2SAT 93
[2025-01-06] MEDS: METHADONE 5 MG TAB PO SCH (09:32)
[2025-01-06] MEDS: OMEPRAZOLE 20MG CAP PO PRN (10:53)
[2025-01-07 04:50] VITALS: BP 101/58; TEMP 97.9; O2SAT 94
[2025-01-08 05:20] VITALS: BP 112/57; TEMP 98.3; O2SAT 91
[2025-01-09 07:14] VITALS: BP 118/56; TEMP 98.1; O2SAT 93
[2025-01-10 06:53] VITALS: BP 138/65; TEMP 98.7; O2SAT 94
[2025-01-11 06:41] VITALS: BP 137/71; TEMP 98.1; O2SAT 94
[2025-01-12 06:40] VITALS: BP 144/68; TEMP 98.6; O2SAT 96
[2025-01-12 15:10] LABS: CALCIUM LEVEL 8.3 MG/DL (8.3-10.6); CARBON DIOXIDE LEVEL 29.0 MMOL/L (20-31); CHLORIDE LEVEL 106.0 MMOL/L (98-107); CREATININE FOR GFR 0.74 MG/DL (0.55-1.30); GLOMERULAR FILTRATION RATE 84.9 (>39); POTASSIUM SERUM 4.4 MMOL/L (3.5-5.1); SODIUM LEVEL 141.0 MMOL/L (136-145)
[2025-01-13 06:20] VITALS: BP 110/56; TEMP 98.3; O2SAT 94
[2025-01-13] MEDS: METHADONE 5 MG TAB PO SCH (08:03)
[2025-01-13] MEDS: FUROSEMIDE 40 MG TAB PO SCH (08:03)
[2025-01-13 16:17] LABS: PLATELET COUNT, AUTOMATED 67 10^3/uL (150-450)
[2025-01-13 16:41] LABS: ALT/SGPT 14.0 U/L (7.0-40); AST/SGOT 34.0 U/L (<34); CALCIUM LEVEL 8.2 MG/DL (8.3-10.6); CARBON DIOXIDE LEVEL 32.0 MMOL/L (20-31); CHLORIDE LEVEL 103.0 MMOL/L (98-107); CREATININE FOR GFR 0.86 MG/DL (0.55-1.30); GLOMERULAR FILTRATION RATE 70.9 (>39); POTASSIUM SERUM 4.0 MMOL/L (3.5-5.1); SODIUM LEVEL 140.0 MMOL/L (136-145)
[2025-01-13 16:58] LABS: IRON (FE) 133.0 UG/DL (50-170); PERCENT SATURATION 61.6 % (13.2-45.0)
[2025-01-13 17:01] LABS: VITAMIN B12 LEVEL 662.0 PG/ML (211-911)
[2025-01-13] MEDS: FOLIC ACID 1 MG TAB PO SCH (18:49)
[2025-01-14 06:12] VITALS: BP 107/52; TEMP 98.5; O2SAT 94
[2025-01-15 04:42] VITALS: BP 118/60; TEMP 98.1; O2SAT 94
[2025-01-16 04:25] VITALS: BP 104/54; TEMP 98.3; O2SAT 94
[2025-01-17 05:59] VITALS: BP 124/60; TEMP 98.3; O2SAT 95
[2025-01-17 09:00] VITALS: BP 142/64; TEMP 98.7; O2SAT 96
[2025-01-18 06:37] VITALS: BP 107/57; TEMP 98.6; O2SAT 99
[2025-01-19 06:40] VITALS: BP 103/57; TEMP 98.7; O2SAT 95
[2025-01-19 09:00] VITALS: BP 112/56; TEMP 99.1; O2SAT 95
[2025-01-19] MEDS: ANALGESIC BALM CRM 3 OZ TOP SCH (21:00)
[2025-01-20 06:18] VITALS: BP 104/56; TEMP 98.8; O2SAT 93
[2025-01-20] MEDS: PERCOCET 5MG/325MG TAB PO PRN (08:40)
[2025-01-21 04:28] VITALS: BP 128/61; TEMP 98.6; O2SAT 96
[2025-01-22 04:24] VITALS: BP 107/53; TEMP 98.7; O2SAT 93
[2025-01-23 04:26] VITALS: BP 116/56; TEMP 98.4; O2SAT 94
[2025-01-23 06:43] LABS: PLATELET COUNT, AUTOMATED 55 10^3/uL (150-450)
[2025-01-23 07:50] LABS: ATYPICAL LYMPH 1 % (0-5); BASOPHILS 1 % (0-1); EOSINOPHILS 7 % (0-3); LYMPHOCYTES 41 % (16-44); MONOCYTES 8 % (0-5); NEUTROPHILS 42 % (28-66)
[2025-01-23 07:54] LABS: PLATELET ESTIMATE DECREASED (NORMAL)
[2025-01-24 04:48] VITALS: BP 123/58; TEMP 98.5; O2SAT 94
[2025-01-24] MEDS ORDERED: IBUPROFEN 800 MG TAB PO PRN (12:30)
[2025-01-25 06:10] VITALS: BP 128/73; TEMP 98.4; O2SAT 93
[2025-01-25 15:54] LABS: PLATELET COUNT, AUTOMATED 59 10^3/uL (150-450)
[2025-01-25 16:12] LABS: INR 1.44
[2025-01-25 16:20] LABS: CALCIUM LEVEL 8.2 MG/DL (8.3-10.6); CARBON DIOXIDE LEVEL 29.0 MMOL/L (20-31); CHLORIDE LEVEL 106.0 MMOL/L (98-107); CREATININE FOR GFR 0.78 MG/DL (0.55-1.30); GLOMERULAR FILTRATION RATE 79.7 (>39); POTASSIUM SERUM 3.9 MMOL/L (3.5-5.1); SODIUM LEVEL 139.0 MMOL/L (136-145)
[2025-01-26 06:20] VITALS: BP 115/64; TEMP 99.5; O2SAT 92
[2025-01-27 06:27] VITALS: BP 107/57; TEMP 98.3; O2SAT 93
[2025-01-27] MEDS ORDERED: dexAMETHasone 4 MG/ML 1 ML VIAL As Ordered ONE (14:23)
[2025-01-27] MEDS ORDERED: LIDOCAINE 2% 100 MG/5 ML SDV (FOR ANES.) As Ordered ONE (14:23)
[2025-01-27] MEDS ORDERED: ONDANSETRON 4MG/2ML VIAL As Ordered ONE (14:23)
[2025-01-27] MEDS ORDERED: MIDAZOLAM INJ 2 MG/2 ML VIAL As Ordered ONE (14:32)
[2025-01-27] MEDS: ceFAZolin SODIUM 2 GM in DEXTROSE 5% (D5W) ADV/MINI-BAG 50 ML IV ONE (15:57)
[2025-01-27] MEDS: SODIUM CHLORIDE 0.9% 500 ML XX SCH (15:57)
[2025-01-27] MEDS: LIDOCAINE 1% MDV 20 ML VIAL SC SCH (15:57)
[2025-01-27] MEDS: ISOVUE-300 61% 100 ML VIAL XX SCH (15:57)
[2025-01-27] MEDS ORDERED: ONDANSETRON 4MG/2ML VIAL IV PRN (16:25)
[2025-01-27 17:19] VITALS: BP 130/76; TEMP 97.6; O2SAT 93
[2025-01-27 17:54] VITALS: BP 138/70; TEMP 97.8; O2SAT 92
[2025-01-28 04:53] VITALS: BP 99/54; TEMP 98.3; O2SAT 90
[2025-01-28 14:00] VITALS: BP 106/56; TEMP 99.1; O2SAT 92
[2025-01-29 04:19] VITALS: BP 106/57; TEMP 98.3; O2SAT 94
[2025-01-30 04:17] VITALS: BP 96/50; TEMP 99; O2SAT 93
[2025-01-31 04:50] VITALS: BP 108/55; TEMP 98.5; O2SAT 90
[2025-01-31 10:03] VITALS: BP 128/73; TEMP 98.6; O2SAT 94
[2025-02-01 06:22] VITALS: BP 121/72; TEMP 98.3; O2SAT 95
[2025-02-01 09:00] VITALS: BP 121/72; TEMP 98.3; O2SAT 95
[2025-02-02 06:11] VITALS: BP 136/67; TEMP 98.6; O2SAT 94
[2025-02-02 08:21] LABS: PLATELET COUNT, AUTOMATED 64 10^3/uL (150-450)
[2025-02-02 08:35] LABS: ALT/SGPT 12.0 U/L (7.0-40); AST/SGOT 36.0 U/L (<34); CALCIUM LEVEL 8.1 MG/DL (8.3-10.6); CARBON DIOXIDE LEVEL 32.0 MMOL/L (20-31); CHLORIDE LEVEL 105.0 MMOL/L (98-107); CREATININE FOR GFR 0.74 MG/DL (0.55-1.30); GLOMERULAR FILTRATION RATE 84.9 (>39); MAGNESIUM LEVEL 1.6 MG/DL (1.8-2.4); POTASSIUM SERUM 3.9 MMOL/L (3.5-5.1); SODIUM LEVEL 142.0 MMOL/L (136-145)
[2025-02-02 08:36] LABS: INR 1.51
[2025-02-02 09:00] VITALS: BP 136/67
[2025-02-02] MEDS: ACETAMINOPHEN 500 MG TAB PO PRN (09:06)
[2025-02-02] MEDS: MAG SULF 1GM/100ML (MAG RUN) 1 GM in IV 1 EA IV ONE (14:29)
[2025-02-03 03:22] VITALS: BP 154/67; TEMP 98.2; O2SAT 92
[2025-02-03] MEDS: SODIUM CHLORIDE 0.9% 500 ML XX SCH (11:55)
[2025-02-03] MEDS: ISOVUE-300 61% 100 ML VIAL XX SCH (11:55)
[2025-02-03] MEDS: ceFAZolin SODIUM 2 GM in DEXTROSE 5% (D5W) ADV/MINI-BAG 50 ML IV ONE (13:06)
[2025-02-03] MEDS ORDERED: ACETAMINOPHEN 1000MG/100ML IV BAG As Ordered ONE (13:07)
[2025-02-03] MEDS: LIDOCAINE 1% MDV 20 ML VIAL SC SCH (13:54)
[2025-02-03] MEDS: MORPHINE 2 MG/ML 1 ML VIAL IV ONE (14:55)
[2025-02-03] MEDS: KETOROLAC 30 MG/ML 1 ML VIAL IV ONE ×2 (15:31→20:21)
[2025-02-03 16:00] VITALS: BP 145/70; TEMP 97.6; O2SAT 93
[2025-02-03 16:40] VITALS: BP 136/66; TEMP 98.2; O2SAT 96
[2025-02-03 17:30] VITALS: BP 140/76; TEMP 97.8; O2SAT 95
[2025-02-03 18:00] VITALS: BP 136/69; TEMP 97.6; O2SAT 94
[2025-02-03] MEDS: MORPHINE 2 MG/ML 1 ML VIAL IV PRN (18:24)
[2025-02-03 19:43] VITALS: BP 150/86; TEMP 98.6; O2SAT 95
[2025-02-03] MEDS: MORPHINE 4 MG/ML 1 ML VIAL IV PRN (21:40)
[2025-02-04 00:14] VITALS: BP 116/71; TEMP 98; O2SAT 92
[2025-02-04 04:45] VITALS: BP 133/62; TEMP 97.9; O2SAT 94
[2025-02-04 06:53] LABS: BASO # 0.0 10^3/uL (0.0-0.2); BASO % 0.4 % (0.0-1.0); EOS # 0.0 10^3/uL (0.0-0.5); EOS % 0.0 % (0.0-3.0); LYMPH # 0.4 10^3/uL (1.5-5.0); LYMPH % 13.7 % (24.0-44.0); MONO # 0.2 10^3/uL (0.0-0.8); MONO % 7.7 % (2.0-8.0); NEUTROPHILS # 2.2 10^3/uL (1.5-8.5); NEUTROPHILS % 77.8 % (36.0-66.0); PLATELET COUNT, AUTOMATED 70 10^3/uL (150-450)
[2025-02-04 07:15] LABS: CALCIUM LEVEL 8.3 MG/DL (8.3-10.6); CARBON DIOXIDE LEVEL 30.0 MMOL/L (20-31); CHLORIDE LEVEL 104.0 MMOL/L (98-107); CREATININE FOR GFR 0.72 MG/DL (0.55-1.30); GLOMERULAR FILTRATION RATE 87.7 (>39); MAGNESIUM LEVEL 1.7 MG/DL (1.8-2.4); POTASSIUM SERUM 4.3 MMOL/L (3.5-5.1); SODIUM LEVEL 138.0 MMOL/L (136-145)
[2025-02-04] MEDS: MAG SULF 1GM/100ML (MAG RUN) 1 GM in IV 1 EA IV SCH (08:12)
[2025-02-04 10:06] VITALS: BP 104/51; TEMP 97.4; O2SAT 95
[2025-02-04 14:18] VITALS: BP 118/61; TEMP 97.6; O2SAT 95
[2025-02-04 17:45] VITALS: BP 111/62; TEMP 98.6; O2SAT 94
[2025-02-04 21:39] VITALS: BP 120/60; TEMP 99.7; O2SAT 96
[2025-02-05 05:10] VITALS: BP 129/59; TEMP 98.3; O2SAT 98
[2025-02-05] MEDS ORDERED: LIDO5TD TD (13:34)
[2025-02-05] MEDS ORDERED: OXYC-517 PO (13:34)
[2025-02-05] MEDS ORDERED: FOLI1TAB11 PO (13:34)
[2025-02-05] MEDS ORDERED: CALC667T2 PO (13:34)
[2025-02-05] MEDS ORDERED: ACET-683 PO (13:34)
[2025-02-05] MEDS ORDERED: GNP250TA9 PO (13:34)
[2025-02-05] MEDS ORDERED: LACT10SO94 PO (13:34)
[2025-02-05] MEDS ORDERED: BISA10SU PR (13:34)
[2025-02-05] MEDS ORDERED: IBUP-1114 PO (13:34)
[2025-02-05 14:00] VITALS: BP 142/63; TEMP 98; O2SAT 96
[2025-02-09] MEDS ORDERED: ACET-683 PO (14:00)
[2025-02-09] MEDS ORDERED: CALC1CAP PO (14:02)
[2025-02-09] MEDS ORDERED: FOLI1TAB11 PO (14:05)
[2025-02-09] MEDS ORDERED: IBUP1TAB5 PO (14:16)
[2025-02-09] MEDS ORDERED: LACT10SO94 PO (14:17)
[2025-02-09] MEDS ORDERED: MAGN250T17 PO (14:19)
== END 2025-02-05 17:00 | disposition home health service (06) | DRG 516 ==
LOC: M ED 11:01 → EDBD 11:01 → M ED INP 16:52 → M MS5PR 19:55
PROVIDERS: ADMIT Internal Medicine Nephrology; ATTEND Student in an Organized Health Care Education/Training Program
PROC: 0QS03ZZ Reposition Lumbar Vertebra, Percutaneous Approach (ICD-10-PCS; 2025-01-27)
PROC: 0QU03JZ Supplement Lumbar Vertebra with Synthetic Substitute, Percutaneous Approach (ICD-10-PCS; 2025-01-27)
PROC: 0QU03JZ Supplement Lumbar Vertebra with Synthetic Substitute, Percutaneous Approach (ICD-10-PCS; 2025-02-03)
PROC: 0QS03ZZ Reposition Lumbar Vertebra, Percutaneous Approach (ICD-10-PCS; principal; 2025-02-03 13:00)
DX: S32.020A Wedge compression fracture of second lumbar vertebra, initial encounter for closed fracture (principal); E72.20 Disorder of urea cycle metabolism, unspecified; D61.818 Other pancytopenia; K74.60 Unspecified cirrhosis of liver; I12.9 Hypertensive chronic kidney disease with stage 1 through stage 4 chronic kidney disease, or unspecified chronic kidney disease; N18.30 Chronic kidney disease, stage 3 unspecified; J44.9 Chronic obstructive pulmonary disease, unspecified; M81.0 Age-related osteoporosis without current pathological fracture; F17.210 Nicotine dependence, cigarettes, uncomplicated; R29.6 Repeated falls; M19.90 Unspecified osteoarthritis, unspecified site; K21.9 Gastro-esophageal reflux disease without esophagitis; R26.9 Unspecified abnormalities of gait and mobility; D64.9 Anemia, unspecified; D51.0 Vitamin B12 deficiency anemia due to intrinsic factor deficiency; F41.1 Generalized anxiety disorder; E55.9 Vitamin D deficiency, unspecified; M25.552 Pain in left hip; D69.6 Thrombocytopenia, unspecified; G89.29 Other chronic pain; M54.50 Low back pain, unspecified; B18.2 Chronic viral hepatitis C; Z79.899 Other long term (current) drug therapy; Z88.0 Allergy status to penicillin; Z88.8 Allergy status to other drugs, medicaments and biological substances; Z85.828 Personal history of other malignant neoplasm of skin; W18.30XA Fall on same level, unspecified, initial encounter; Y92.009 Unspecified place in unspecified non-institutional (private) residence as the place of occurrence of the external cause